=== PATIENT | female | born 1990 | race African-American/Black ===

== ENCOUNTER 2016-10-07 20:34 | Emergency (ER) | payer MEDICAID, OTHER ==
[~2016-10-07] VITALS: Ht 160 cm; Wt 79.4 kg
[~2016-10-07 20:34] MED LIST: HYDROCODON-ACE1 EA15 ORAL; KEFLEX500 MG ORAL; NITROFURANTOIN100 M2 ORAL; NKM; NORCO 5-325 TA1 EAC1 ORAL; NORCO 5-325 TA1 EACH ORAL; ONDANSETRON ODT4 MG ORAL; ONDANSETRON ODT4 MG PO; PEPCID20 MG ORAL; PREVACID30 MG ORAL; PROMETHAZINE HC25 MG RC; ZOFRAN ODT4 MG ORAL; ZOFRAN4 M3 ORAL
[2016-10-07] MEDS ORDERED: Lidocaine 2% Visc 15ml soln ORAL ONE (21:00)
[2016-10-07] MEDS ORDERED: LIDOCAINE20 MG/1 M1 MM (21:09)
[2016-10-07] MEDS ORDERED: AMOXICILLI250 MG/5 M ORAL (21:09)
[2016-10-07 21:21] VITALS: BP 130/67
--- NOTE | 2016-10-11 13:45 | Emergency Room Report ---
History of Present Illness General Chief Complaint: Sore Throat Source: Patient Present Illness HPI Patient is a 26-year-old female presented after increased sore throat. Patient gradual onset of symptoms of the past 2 days. Patient reported having increased difficulty swallowing. Patient denied having any headache or neck stiffness. Patient had been able to pass liquids. Patient denied productive cough. Patient reported having some subjective fever Allergies: Coded Allergies: [place] (Verified Allergy, Unknown, 10/07/16) Patient History Last Menstrual Period: a week ago Now: No Reviewed Nursing Documentation: PMH: Agreed, PSxH: Agreed Nursing Documentation-PMH Past Medical History: No History, Except For Hx Cardiac Problems: No Hx Cancer: No Hx Gastrointestinal Problems: Yes - Gastritis Hx Neurological Problems: No Review of Systems All Other Systems: negative except mentioned in HPI Physical Exam Vital Signs Date Time Temp Pulse Resp B/P Pulse Ox O2 Delivery O2 Flow Rate FiO2 10/07/16 20:44 98.1 88 16 121/77 99 Room Air General Appearance: well appearing, no apparent distress, alert, GCS 15 Head: normocephalic, atraumatic ENT: normal voice, uvula midline, pharyngeal erythema Neck: full range of motion, supple Respiratory: lungs clear, normal breath sounds, no respiratory distress, speaking full sentences Gastrointestinal: normal bowel sounds, non tender Musculoskeletal: normal inspection, back normal, digits/nails normal, no calf tenderness Neurologic: normal inspection, alert, oriented x3, responsive, first cook III-XII nml as tested, normal gait Psychiatric: normal inspection, mood/affect normal Skin: no rash Medical Decision Making Diagnostic Impression: Primary Impression: Pharyngitis ER Course Patient presented for sore throat. Differential diagnosis included but was not limited to meningitis, exudative tonsillitis, retropharyngeal abscess, epiglottitis, strep pharyngitis. Patient's benign exam and does not appear to require any further imaging or laboratory testing at this time. Patient given prescription for viscous lidocaine as well as for antibiotics due to presumed strep pharyngitis.The patient is advised to follow up with primary care doctor in 1-2 days. Patient is advised to return if any worsening condition or if any changes in status that are concerning. Last Vital Signs Date Time Temp Pulse Resp B/P Pulse Ox O2 Delivery O2 Flow Rate FiO2 10/07/16 21:21 78 14 130/67 99 Room Air 10/07/16 21:21 98.0 Status: improved Disposition: HOME, SELF-CARE Condition: Stable Scripts Lidocaine HCl (Lidocaine HCl Viscous) 100 Ml Solution 20 MG MM EVERY 8 HOURS, #100 MG Prov: Hipolito Whelan 10/07/16 Amoxicillin* (AMOXICILLIN*) 250 Mg/5 Ml Susp.recon 250 MG ORAL EVERY 8 HOURS, #150 ML Prov: Hipolito Whelan 10/07/16 Referrals: [facility] (PCP) Patient Instructions: Sore Throat Hipolito Whelan Oct 11, 2016 13:45
== END 2016-10-07 21:21 | disposition home or self-care (01) ==
LOC: EMR 21:08
DX: J02.9 Acute pharyngitis, unspecified (principal)
CPT/HCPCS: 99284

== ENCOUNTER 2016-10-25 08:44 | Emergency (ER) | payer OTHER ==
[~2016-10-25] VITALS: Ht 160 cm; Wt 77.1 kg
[~2016-10-25 08:44] MED LIST changes: +AMOXICILLI250 MG/5 M ORAL; +LIDOCAINE20 MG/1 M1 MM
--- NOTE | 2016-10-25 08:57 | Emergency Room Report ---
History of Present Illness General Chief Complaint: Abdominal Pain Source: Patient Present Illness HPI Patient presents with abdominal pain. Started at 4 am. She's states it's severe at this time. Constant. Some suprapubic and right lower quadrant. She doesn't think she is . She denies any dysuria. She's been vomiting along with that. She is unable to take any medication. She denies any fevers or upper respiratory symptoms. She still has her appendix. Pain 10/10, sharp and burning. Menses began recently. Denies discharge. No prior pelvic infection. Has had problems with R ovary in past. H/O gastritis in past. This feels different. Allergies: Coded Allergies: [place] (Verified Allergy, Unknown, 10/07/16) Patient History Past Medical History: see triage record Social History: Denies: smoking Social History Narrative at home Last Menstrual Period: 10/24/16 Reviewed Nursing Documentation: PMH: Agreed, PSxH: Agreed Nursing Documentation-PMH Past Medical History: No History, Except For Hx Cardiac Problems: No Hx Cancer: No Hx Gastrointestinal Problems: Yes - gastritis Hx Neurological Problems: No Review of Systems All Other Systems: negative except mentioned in HPI Physical Exam Vital Signs Date Time Temp Pulse Resp B/P Pulse Ox O2 Delivery O2 Flow Rate FiO2 10/25/16 08:49 97.3 52 26 118/52 98 Sp02 EP Interpretation: reviewed, normal General Appearance: well appearing, GCS 15, non-toxic, mild distress Head: normocephalic, atraumatic Eyes: bilateral eye PERRL, bilateral eye normal inspection ENT: moist mucus membranes Neck: supple Respiratory: lungs clear, normal breath sounds Cardiovascular #1: regular rate, rhythm Cardiovascular #2: 2+ radial (R) Gastrointestinal: normal inspection, normal bowel sounds, no mass, non- distended, no guarding, no rebound, tenderness - suprapubic Genitourinary: no CVA tenderness, adnexa normal, cervix normal, os closed, uterus normal, other - menstrual blood, no CMT Musculoskeletal: back normal, gait/station normal, normal range of motion Neurologic: alert, oriented x3, grossly normal Psychiatric: mood/affect normal Skin: normal inspection, warm/dry Medical Decision Making Diagnostic Impression: Primary Impression: Abdominal pain Qualified Codes: R10.30 - Lower abdominal pain, unspecified Additional Impressions: UTI (urinary tract infection) Qualified Codes: N30.00 - Acute cystitis without hematuria Nausea & vomiting Qualified Codes: R11.2 - Nausea with vomiting, unspecified ER Course Patient presents with abdominal pain. Differential includes appendicitis, gastroenteritis, torsion, PID, UTI, gastritis, diverticulitis amongst others. The patient has fairly significant pain at this time. Evaluation will be with labs, and urinalysis. Will consider performing pelvic ultrasound. She'll be treated with IV hydration, Zofran, Pepcid, toradol and also with morphine. Labs with normal WBC. UA with pyuria. Minimal elevation of LFTs. Bili normal. (Pain was not RUQ.) Improved with meds. Based on pelvic, not PID. Wet mount neg. Abdomen is soft and no guarding. Melissa PO. Patient stable for outpatient observation and treatment. Laboratory Tests Test 10/25/16 09:00 10/25/16 09:20 Chlamydia trachomatis RNA Pending White Blood Count 6.8 K/UL (4.8-10.8) Red Blood Count 4.50 M/UL (4.20-5.40) Hemoglobin 12.6 G/DL (12.0-16.0) Hematocrit 40.3 % (37.0-47.0) Mean Corpuscular Volume 90 FL (80-99) Mean Corpuscular Hemoglobin 28.0 PG (27.0-31.0) Mean Corpuscular Hemoglobin Concent 31.2 G/DL (32.0-36.0) L Red Cell Distribution Width 14.2 % (11.6-14.8) Platelet Count 374 K/UL (150-450) Mean Platelet Volume 6.3 FL (6.5-10.1) L Neutrophils (%) (Auto) 57.2 % (45.0-75.0) Lymphocytes (%) (Auto) 29.1 % (20.0-45.0) Monocytes (%) (Auto) 7.6 % (1.0-10.0) Eosinophils (%) (Auto) 4.3 % (0.0-3.0) H Basophils (%) (Auto) 1.8 % (0.0-2.0) Prothrombin Time 10.2 SEC (9.30-11.50) Prothrombin Time INR 1.0 (0.9-1.1) PTT 27 SEC (23-33) Urine Color Pale yellow Urine Appearance Slightly cloudy Urine pH 7 (4.5-8.0) Urine Specific [place] 1.010 (1.005-1.035) Urine Protein 2+ (NEGATIVE) H Urine Glucose (UA) Negative (NEGATIVE) Urine Ketones Negative (NEGATIVE) Urine Occult Blood 5+ (NEGATIVE) H Urine Nitrite Negative (NEGATIVE) Urine Bilirubin Negative (NEGATIVE) Urine Urobilinogen Normal MG/DL (0.0-1.0) Urine Leukocyte Esterase 1+ (NEGATIVE) H Urine RBC 60-80 /HPF (0 - 2) H Urine WBC 10-15 /HPF (0 - 2) H Urine Squamous Epithelial Cells Few /LPF (NONE/OCC) Urine Bacteria Few /HPF (NONE) Urine HCG, Qualitative Negative Sodium Level 140 mEQ/L (135-145) Potassium Level 4.3 mEQ/L (3.4-4.9) Chloride Level 100 mEQ/L (98-107) Carbon Dioxide Level 20 mEQ/L (20-30) Anion Gap 20 (5-15) H Blood Urea Nitrogen 6 mg/dL (7-23) L Creatinine 0.7 mg/dL (0.5-0.9) Estimate Glomerular Filtration Rate > 60 mL/min (>60) Glucose Level 113 mg/dL (74-106) H Calcium Level 9.0 mg/dL (8.6-10.2) Total Bilirubin < 0.2 mg/dL (0.0-1.2) Aspartate Amino Transferase (AST) 70 U/L (5-40) H Alanine Aminotransferase (ALT) 49 U/L (3-33) H Alkaline Phosphatase 71 U/L (35-104) Total Protein 7.8 g/dL (6.6-8.7) Albumin 4.1 g/dL (3.5-5.2) Globulin 3.7 g/dL Albumin/Globulin Ratio 1.1 (1.0-2.7) Lipase 16 U/L (< 60) Microbiology Date/Time Source Procedure Growth Status 10/25/16 11:50 Vaginal Wet Prep - Final Complete Last Vital Signs Date Time Temp Pulse Resp B/P Pulse Ox O2 Delivery O2 Flow Rate FiO2 10/25/16 13:50 97.3 50 26 101/51 100 Room Air Status: improved Disposition: HOME, SELF-CARE Condition: Improved Scripts Famotidine (PEPCID) 20 Mg Tablet 20 MG ORAL DAILY, #20 TAB 0 Refills Prov: Hair Renee M.D. 10/25/16 Ondansetron Odt* (ZOFRAN ODT*) 4 Mg Tab.rapdis 4 MG ORAL Q6H Y for Nausea & Vomiting, #8 TAB 0 Refills Prov: Hair Renee M.D. 10/25/16 Nitrofurantoin Monohyd/M-Cryst* (MACROBID 100 MG*) 100 Mg Capsule 100 MG ORAL EVERY 12 HOURS, #14 CAP Prov: Hair Renee M.D. 10/25/16 Tramadol Hcl* (ULTRAM*) 50 Mg Tablet 50 MG ORAL Q6H Y for For Pain, #12 TAB 0 Refills Prov: Hair Renee M.D. 10/25/16 Hair Renee M.D. Oct 25, 2016 08:57
[2016-10-25] MEDS ORDERED: Morphine Sulfate 2mg/ml Inj IVP ONE (09:00)
[2016-10-25] MEDS ORDERED: Ketorolac 30mg Inj IV ONE (09:00)
[2016-10-25] MEDS ORDERED: Famotidine 20 MG/ 2ML VIAL IVP ONE (09:00)
[2016-10-25 09:39] LABS: APPEARANCE,URINE SLIGHTLY CLOUDY; BASOPHILS % (AUTO) 1.8 % (0.0-2.0); EOSINOPHILS % (AUTO) 4.3 % (0.0-3.0); KETONES,URINE NEGATIVE (NEGATIVE); LEUKOCYTE ESTERASE ,URINE 1+ (NEGATIVE); LYMPHOCYTES % (AUTO) 29.1 % (20.0-45.0); MEAN CORPUSCULAR HGB CONC 31.2 G/DL (32.0-36.0); MEAN CORPUSCULAR VOLUME 90 FL (80-99); MEAN PLATELET VOLUME 6.3 FL (6.5-10.1); MONOCYTES % (AUTO) 7.6 % (1.0-10.0); NEUTROPHILS % (AUTO) 57.2 % (45.0-75.0); NITRITE,URINE NEGATIVE (NEGATIVE); PH,URINE 7 (4.5-8.0); PLATELET COUNT 374 K/UL (150-450); PROTEIN,URINE 2+ (NEGATIVE); RED CELL DISTRIBUTION WIDTH 14.2 % (11.6-14.8); UROBILINOGEN,URINE NORMAL MG/DL (0.0-1.0); WHITE BLOOD COUNT 6.8 K/UL (4.8-10.8)
[2016-10-25 09:40] VITALS: BP 123/70
[2016-10-25 09:47] LABS: ALANINE AMINOTRANSFERASE 49 U/L (3-33); ALBUMIN/GLOBULIN RATIO 1.1 (1.0-2.7); ANION GAP 20 (5-15); ASPARTATE AMINO TRANSFERASE 70 U/L (5-40); CARBON DIOXIDE 20 mEQ/L (20-30); CHLORIDE 100 mEQ/L (98-107); CREATININE 0.7 mg/dL (0.5-0.9); GLOMERULAR FILTRATION RATE > 60 mL/min (>60); HEMOLYSIS 62; LIPASE 16 U/L (< 60); POTASSIUM 4.3 mEQ/L (3.4-4.9); SODIUM 140 mEQ/L (135-145); TOTAL PROTEIN 7.8 g/dL (6.6-8.7)
[2016-10-25 09:49] LABS: BACTERIA,URINE FEW /HPF; RBC,URINE 60-80 /HPF (0 - 2); SQUAMOUS EPITHELIAL CELL,UR FEW /LPF (NONE/OCC)
[2016-10-25 09:50] LABS: PROTHROMBIN TIME 10.2 SEC (9.30-11.50)
[2016-10-25] MEDS ORDERED: Morphine Sulfate 4mg/ml Inj IVP ONE ×2 (10:00→12:00)
[2016-10-25] MEDS ORDERED: cefTRIAXone 1 GM in NS 55 ML IVPB ONE (10:00)
[2016-10-25] MEDS ORDERED: Metoclopramide 10mg/2ml Inj IVP ONE (10:00)
[2016-10-25] MEDS ORDERED: DiphenhydrAMINE 50mg/ml Inj IVP ONE (10:00)
[2016-10-25 11:34] VITALS: BP 123/70
[2016-10-25] MEDS ORDERED: PEPCID20 MG ORAL (13:20)
[2016-10-25] MEDS ORDERED: ZOFRAN ODT4 MG ORAL (13:20)
[2016-10-25] MEDS ORDERED: NITROFURANTOIN100 M2 ORAL (13:20)
[2016-10-25] MEDS ORDERED: TRAMADOL HCL50 MG ORAL (13:20)
[2016-10-25 13:50] VITALS: BP 101/51
== END 2016-10-25 15:15 | disposition home or self-care (01) ==
LOC: EMR 08:59
DX: R10.30 Lower abdominal pain, unspecified (principal); N30.00 Acute cystitis without hematuria; R11.2 Nausea with vomiting, unspecified; Z91.018 Allergy to other foods
CPT/HCPCS: 36415; 80053; 81003; 81025; 83690; 85025; 85610; 85730; 87081; 87086; 87205; 87210; 87491; 96374; 96375; 99284; J0696; J1200; J1885; J2270; J2405; J2765; S0028

== ENCOUNTER 2016-10-29 09:21 | Emergency (ER) | payer OTHER ==
[~2016-10-29] VITALS: Ht 167.6 cm; Wt 77.1 kg
[~2016-10-29 09:21] MED LIST changes: +TRAMADOL HCL50 MG ORAL
[2016-10-29 09:40] VITALS: BP 154/86
[2016-10-29] MEDS ORDERED: Famotidine 20 MG/ 2ML VIAL IVP ONE (10:00)
[2016-10-29] MEDS ORDERED: Morphine Sulfate 4mg/ml Inj IVP ONE ×2 (10:00→11:15)
[2016-10-29 10:28] LABS: BASOPHILS % (AUTO) 1.1 % (0.0-2.0); EOSINOPHILS % (AUTO) 2.8 % (0.0-3.0); LYMPHOCYTES % (AUTO) 36.4 % (20.0-45.0); MEAN CORPUSCULAR HGB CONC 32.2 G/DL (32.0-36.0); MEAN CORPUSCULAR VOLUME 87 FL (80-99); MEAN PLATELET VOLUME 6.2 FL (6.5-10.1); MONOCYTES % (AUTO) 16.1 % (1.0-10.0); NEUTROPHILS % (AUTO) 43.6 % (45.0-75.0); PLATELET COUNT 356 K/UL (150-450); RED BLOOD COUNT 4.23 M/UL (4.20-5.40); RED CELL DISTRIBUTION WIDTH 13.3 % (11.6-14.8); WHITE BLOOD COUNT 4.8 K/UL (4.8-10.8)
[2016-10-29 10:37] LABS: ALANINE AMINOTRANSFERASE 87 U/L (3-33); ALBUMIN/GLOBULIN RATIO 1.2 (1.0-2.7); ANION GAP 19 (5-15); ASPARTATE AMINO TRANSFERASE 167 U/L (5-40); CALCIUM 9.4 mg/dL (8.6-10.2); CARBON DIOXIDE 21 mEQ/L (20-30); CHLORIDE 100 mEQ/L (98-107); CREATININE 0.8 mg/dL (0.5-0.9); GLOMERULAR FILTRATION RATE > 60 mL/min (>60); HEMOLYSIS 0; LIPASE 15 U/L (< 60); POTASSIUM 3.2 mEQ/L (3.4-4.9); SODIUM 140 mEQ/L (135-145)
[2016-10-29 11:00] VITALS: BP 130/96
[2016-10-29] MEDS ORDERED: DiphenhydrAMINE 50mg/ml Inj IVP ONE (11:15)
[2016-10-29] MEDS ORDERED: Metoclopramide 10mg/2ml Inj IVP ONE (11:15)
[2016-10-29 13:00] VITALS: BP 141/86
[2016-10-29 13:03] LABS: APPEARANCE,URINE SLIGHTLY CLOUDY; KETONES,URINE 3+ (NEGATIVE); LEUKOCYTE ESTERASE ,URINE 1+ (NEGATIVE); NITRITE,URINE NEGATIVE (NEGATIVE); PH,URINE 8 (4.5-8.0); PROTEIN,URINE 1+ (NEGATIVE); UROBILINOGEN,URINE NORMAL MG/DL (0.0-1.0)
[2016-10-29 13:17] LABS: BACTERIA,URINE FEW /HPF; RBC,URINE 30-40 /HPF (0 - 2); SQUAMOUS EPITHELIAL CELL,UR FEW /LPF (NONE/OCC)
--- NOTE | 2016-10-29 14:01 | Diagnostic Imaging Report ---
Indication: Abdominal pain Comparison: None Single view of the abdomen obtained Findings: Bowel gas pattern is nonspecific. No mass, ectopic calcifications, or abnormal gas collections are identified. The bones are unremarkable. Impression: No acute findings
--- NOTE | 2016-10-29 14:39 | Emergency Room Report ---
History of Present Illness General Chief Complaint: Abdominal Pain Source: Patient Present Illness HPI The patient represents with epigastric pain and vomiting. She was evaluated on October 25 with similar complaints. Labs were unremarkable and she was able to tolerate by mouth after IV hydration and several different antiemetics and analgesia. She was doing well until last night about 1 in the morning. She's been vomiting persistently. I prescribed Zofran which did not help. Also had prescribed pain medication and this also she was unable to tolerate. She doesn't think she is , there is no blood in the vomitus. No melena. She is passing flatus at this time. She feels some dizziness with standing. Denies any fevers or chills or extremity pain. Pain is 9/10, constant, burning, more epigastric, states not radiating. CT 11/2015 for similar complaints: Impression: Normal appendix. Underdistention of the colon noted. Wall thickening and colitis not excluded. Please correlate clinically. Free fluid within the pelvis. Uterine fibroid suspected. Allergies: Coded Allergies: [place] (Verified Allergy, Unknown, 10/07/16) Patient History Past Medical History: see triage record Social History: Denies: alcohol use Social History Narrative at home Reviewed Nursing Documentation: PMH: Agreed, PSxH: Agreed Nursing Documentation-PMH Hx Cardiac Problems: No Hx Cancer: No Hx Gastrointestinal Problems: Yes - gastritis Hx Neurological Problems: No Review of Systems All Other Systems: negative except mentioned in HPI Physical Exam Vital Signs Date Time Temp Pulse Resp B/P Pulse Ox O2 Delivery O2 Flow Rate FiO2 10/29/16 09:39 98.2 53 20 149/90 99 Room Air Sp02 EP Interpretation: reviewed, normal General Appearance: GCS 15, non-toxic, mild distress, other - vomiting Head: normocephalic Eyes: bilateral eye PERRL, bilateral eye anticteric, bilateral eye normal inspection ENT: moist mucus membranes Neck: supple Respiratory: lungs clear, normal breath sounds Cardiovascular #1: regular rate, rhythm Cardiovascular #2: 2+ radial (R) Gastrointestinal: soft, guarding - epigastric, tenderness, overweight Musculoskeletal: back normal, gait/station normal, normal range of motion Neurologic: alert, oriented x3, grossly normal Psychiatric: depressed affect Skin: normal inspection, warm/dry Medical Decision Making Diagnostic Impression: Primary Impression: Intractable abdominal pain Additional Impression: Nausea & vomiting Qualified Codes: G43.A1 - Cyclical vomiting, intractable ER Course Patient presents with epigastric pain and vomiting. She was seen with similar complaints on the and improved was able tolerate by mouth liquids. In the past she's had to be hospitalized for this problem. We need to do repeat evaluation this time with x-rays. The patient will be evaluated with abdominal film, labs and urinalysis. The patient will receive IV hydration, Zofran and analgesia. The patient still is vomiting and Reglan and Benadryl were given and analgesia was repeated. Labs and x-ray unremarkable. Patient still vomiting and with pain. Admit med. Discussed with Dr. Stahl who accepts patient. Laboratory Tests Test 10/29/16 10:02 10/29/16 12:38 White Blood Count 4.8 K/UL (4.8-10.8) Red Blood Count 4.23 M/UL (4.20-5.40) Hemoglobin 11.8 G/DL (12.0-16.0) L Hematocrit 36.7 % (37.0-47.0) L Mean Corpuscular Volume 87 FL (80-99) Mean Corpuscular Hemoglobin 28.0 PG (27.0-31.0) Mean Corpuscular Hemoglobin Concent 32.2 G/DL (32.0-36.0) Red Cell Distribution Width 13.3 % (11.6-14.8) Platelet Count 356 K/UL (150-450) Mean Platelet Volume 6.2 FL (6.5-10.1) L Neutrophils (%) (Auto) 43.6 % (45.0-75.0) L Lymphocytes (%) (Auto) 36.4 % (20.0-45.0) Monocytes (%) (Auto) 16.1 % (1.0-10.0) H Eosinophils (%) (Auto) 2.8 % (0.0-3.0) Basophils (%) (Auto) 1.1 % (0.0-2.0) Sodium Level 140 mEQ/L (135-145) Potassium Level 3.2 mEQ/L (3.4-4.9) L Chloride Level 100 mEQ/L (98-107) Carbon Dioxide Level 21 mEQ/L (20-30) Anion Gap 19 (5-15) H Blood Urea Nitrogen 5 mg/dL (7-23) L Creatinine 0.8 mg/dL (0.5-0.9) Estimate Glomerular Filtration Rate > 60 mL/min (>60) Glucose Level 124 mg/dL (74-106) H Calcium Level 9.4 mg/dL (8.6-10.2) Total Bilirubin 0.2 mg/dL (0.0-1.2) Aspartate Amino Transferase (AST) 167 U/L (5-40) H Alanine Aminotransferase (ALT) 87 U/L (3-33) H Alkaline Phosphatase 91 U/L (35-104) Total Protein 8.0 g/dL (6.6-8.7) Albumin 4.5 g/dL (3.5-5.2) Globulin 3.5 g/dL Albumin/Globulin Ratio 1.2 (1.0-2.7) Lipase 15 U/L (< 60) Urine Color Pale yellow Urine Appearance Slightly cloudy Urine pH 8 (4.5-8.0) Urine Specific [place] 1.015 (1.005-1.035) Urine Protein 1+ (NEGATIVE) H Urine Glucose (UA) Negative (NEGATIVE) Urine Ketones 3+ (NEGATIVE) H Urine Occult Blood 5+ (NEGATIVE) H Urine Nitrite Negative (NEGATIVE) Urine Bilirubin Negative (NEGATIVE) Urine Urobilinogen Normal MG/DL (0.0-1.0) Urine Leukocyte Esterase 1+ (NEGATIVE) H Urine RBC 30-40 /HPF (0 - 2) H Urine WBC 2-4 /HPF (0 - 2) Urine Squamous Epithelial Cells Few /LPF (NONE/OCC) Urine Bacteria Few /HPF (NONE) Urine HCG, Qualitative Negative Urine Opiates Screen Positive (NEGATIVE) H Urine Barbiturates Screen Negative (NEGATIVE) Phencyclidine (PCP) Screen Negative (NEGATIVE) Urine Amphetamines Screen Negative (NEGATIVE) Urine Benzodiazepines Screen Negative (NEGATIVE) Urine Cocaine Screen Negative (NEGATIVE) Urine Marijuana (THC) Screen Positive (NEGATIVE) H Other X-Ray Diagnostic Results Other X-Ray Diagnostic Results : X-Ray Ordered: abd EP Interpretation: Yes Findings: other - no SBO, paucity of gas, no masses Number of Views: 1 Last Vital Signs Date Time Temp Pulse Resp B/P Pulse Ox O2 Delivery O2 Flow Rate FiO2 10/29/16 18:24 61 24 114/79 100 Room Air 5/2/17 15:30 98.2 Status: improved Disposition: XFER SHT-TRM HOSP Condition: Serious - but stable for transfer Referrals: [facility] ([facility]P) Hair Renee M.D. October 29, 2016 14:39
[2016-10-29 15:30] VITALS: BP 132/79
[2016-10-29] MEDS ORDERED: HYDROmorphone 1mg/ml Carpuject IVP ONE (16:45)
[2016-10-29 18:24] VITALS: BP 114/79
== END 2016-10-29 18:30 | disposition short-term general hospital (02) ==
LOC: EDBD → EMR 10:19
DX: R11.10 Vomiting, unspecified (principal); Z91.018 Allergy to other foods; K29.70 Gastritis, unspecified, without bleeding; F32.9 Major depressive disorder, single episode, unspecified
CPT/HCPCS: 36415; 74000; 80053; 80300; 81003; 81025; 83690; 85025; 96360; 96374; 96375; 99285; J1170; J1200; J2270; J2405; J2765; S0028

== ENCOUNTER 2016-10-31 09:42 | Emergency (ER) | payer OTHER ==
[~2016-10-31] VITALS: Ht 160 cm; Wt 77.1 kg
[2016-10-31] MEDS ORDERED: Metoclopramide 10mg/2ml Inj IM ONE (10:00)
--- NOTE | 2016-10-31 10:24 | Emergency Room Report ---
History of Present Illness General Chief Complaint: Abdominal Pain Source: Patient Present Illness HPI 26YOF presents with abd pain and nausea/vomiting since DC from outside hospital. Denies urinary complaints, fever/chills, diarrhea, sick contacts, previous abd/pelvic surgery. States is taking [place] at home for pain. Continues to smoke marijuana. Patient was in the ED 2 days ago for similar complaint. Because of intractable vomiting, was transferred to Dr Stahl at outside hospital. Review of EMR shows multiple visits for abd pain and intractable vomiting. Utox has been positive for marijuana abuse multiple times Allergies: Coded Allergies: [place] (Verified Allergy, Unknown, 10/07/16) Patient History Past Medical History: none Past Surgical History: none Pertinent Family History: none Social History: Reports: drug use, smoking Last Menstrual Period: 10/25/16 Now: No Immunizations: UTD Reviewed Nursing Documentation: PMH: Agreed, PSxH: Agreed Nursing Documentation-PMH Past Medical History: No History, Except For Hx Cardiac Problems: No Hx Cancer: No Hx Gastrointestinal Problems: Yes - gastritis Hx Neurological Problems: No Review of Systems All Other Systems: negative except mentioned in HPI Physical Exam Vital Signs Date Time Temp Pulse Resp B/P Pulse Ox O2 Delivery O2 Flow Rate FiO2 10/31/16 09:57 98.1 74 20 132/76 99 Room Air Sp02 EP Interpretation: reviewed, normal General Appearance: normal inspection, well appearing, no apparent distress, alert, GCS 15, non-toxic, other - Vomiting non-bilious material in [employer] chairs Head: normocephalic, atraumatic Eyes: bilateral eye EOMI, bilateral eye PERRL ENT: normal ENT inspection, hearing grossly normal, normal voice Neck: normal inspection, full range of motion, supple, no bony tend Respiratory: normal inspection, lungs clear, normal breath sounds, no respiratory distress, no retraction, no wheezing Cardiovascular #1: regular rate, rhythm, no edema Gastrointestinal: normal inspection, normal bowel sounds, non tender, soft, no guarding, no hernia Genitourinary: no CVA tenderness Musculoskeletal: normal inspection, back normal, normal range of motion, Иван' s Sign negative Neurologic: normal inspection, alert, oriented x3, responsive, facs teacher III-XII nml as tested, motor strength/tone normal, speech normal Psychiatric: normal inspection, judgement/insight normal, mood/affect normal Skin: normal inspection, normal color, no rash Lymphatic: normal inspection Medical Decision Making Diagnostic Impression: Primary Impression: Nausea & vomiting Qualified Codes: G43.A0 - Cyclical vomiting, not intractable Additional Impressions: Intractable cyclical vomiting with nausea Marijuana abuse, continuous ER Course 26YOF with repeat visits for intractable vomiting, likely d/t continuous marijuana abuse VSS. Afebrile. No focal abd ttp on exam Labs from 2 days ago were unremarkable for acute bacterial or surgical process Previous CTAP was also unremarkable Patient refused to give urine Was writhing on ground in OB room but when I came to examine her, got up, sat on bed and had normal interactive conversation Endorses continuous marijuana abuse. I encouraged her to stop as its possibly contributing to intractable vomiting. States she has [place] at home for pain "but please give me some here." I gave IM reglan and additional IM zofran for intractable vomiting but when refused to give narcotics, patient cursed me out and called me an "asshole" which was witnessed by KAREN Hooker Last Vital Signs Date Time Temp Pulse Resp B/P Pulse Ox O2 Delivery O2 Flow Rate FiO2 10/31/16 09:57 98.1 74 20 132/76 99 Room Air Status: improved Disposition: HOME, SELF-CARE JOSE CARLOS RIVERA M.D. October 31, 2016 10:24
[2016-10-31 11:30] VITALS: BP 127/80
== END 2016-10-31 11:32 | disposition home or self-care (01) ==
LOC: EMR 11:15 → EDBD 11:15 → EMR 11:32
DX: G43.A0 Cyclical vomiting, in migraine, not intractable (principal); F12.10 Cannabis abuse, uncomplicated; Z87.19 Personal history of other diseases of the digestive system
CPT/HCPCS: 96372; 99283; J2405; J2765

== ENCOUNTER 2017-07-08 12:53 | Emergency (ER) | payer OTHER ==
[~2017-07-08] VITALS: Ht 162.6 cm; Wt 72.6 kg
[2017-07-08] MEDS ORDERED: NKM (13:12)
[2017-07-08 14:30] LABS: BASOPHILS % (AUTO) 1.1 % (0.0-2.0); EOSINOPHILS % (AUTO) 1.6 % (0.0-3.0); HEMATOCRIT 40.5 % (37.0-47.0); LYMPHOCYTES % (AUTO) 18.9 % (20.0-45.0); MEAN CORPUSCULAR VOLUME 88 FL (80-99); MONOCYTES % (AUTO) 6.9 % (1.0-10.0); NEUTROPHILS % (AUTO) 71.6 % (45.0-75.0); PLATELET COUNT 374 K/UL (150-450); RED BLOOD COUNT 4.61 M/UL (4.20-5.40); RED CELL DISTRIBUTION WIDTH 12.6 % (11.6-14.8); WHITE BLOOD COUNT 9.8 K/UL (4.8-10.8)
[2017-07-08 14:32] LABS: APPEARANCE,URINE CLEAR; BILIRUBIN, URINE NEGATIVE (NEGATIVE); COLOR,URINE PALE YELLOW; GLUCOSE, URINE (UA) NEGATIVE (NEGATIVE); KETONES,URINE 2+ (NEGATIVE); LEUKOCYTE ESTERASE ,URINE 2+ (NEGATIVE); NITRITE,URINE NEGATIVE (NEGATIVE); PH,URINE 7 (4.5-8.0); PROTEIN,URINE NEGATIVE (NEGATIVE); UROBILINOGEN,URINE NORMAL MG/DL (0.0-1.0)
[2017-07-08 15:27] LABS: ANION GAP 13 mmol/L (5-15); BLOOD UREA NITROGEN 3 mg/dL (7-18); CALCIUM 9.5 MG/DL (8.5-10.1); CARBON DIOXIDE 22 MMOL/L (21-32); CHLORIDE 101 MMOL/L (98-107); CREATININE 0.7 MG/DL (0.55-1.30); SODIUM 136 MMOL/L (136-145)
[2017-07-08 15:28] LABS: ALANINE AMINOTRANSFERASE 55 U/L (12-78); ALBUMIN 4.1 G/DL (3.4-5.0); ALBUMIN/GLOBULIN RATIO 0.9 (1.0-2.7); ALKALINE PHOSPHATASE 62 U/L (46-116); ASPARTATE AMINO TRANSFERASE 32 U/L (15-37); BILIRUBIN,TOTAL 0.3 MG/DL (0.2-1.0)
[2017-07-08 16:15] VITALS: BP 127/88
[2017-07-08] MEDS ORDERED: PRENATAL VITAM1 EACH PO (16:33)
--- NOTE | 2017-07-08 22:42 | Emergency Room Report ---
History of Present Illness General Chief Complaint: Abdominal Pain Source: Patient Present Illness [facility] The patient is a 27-year-old female at approximately 4 weeks gestation by dates presenting for cough, fatigue, subjective fevers. Last normal menstrual period was 06/05/18. She took a test at home yesterday which was +. She denies any known sick contacts recent travel. Pain is an 8 of 10 dull ache primarily to the mid chest. Does not radiate. She denies other symptoms including vomiting, abd pain, shortness of breath, vaginal DC, vaginal bleeding Allergies: Coded Allergies: [place] (Verified Allergy, Unknown, 10/07/16) Patient History Past Medical History: see triage record Pertinent Family History: none Now: Yes : 3 Para: 1 Reviewed Nursing Documentation: PMH: Agreed, PSxH: Agreed Nursing Documentation-PMH Hx Cardiac Problems: No Hx Cancer: No Hx Gastrointestinal Problems: Yes - Gastritis Hx Neurological Problems: No Review of Systems All Other Systems: negative except mentioned in HPI Physical Exam Vital Signs Date Time Temp Pulse Resp B/P (MAP) Pulse Ox O2 Delivery O2 Flow Rate FiO2 07/08/17 13:08 99.0 84 20 127/88 99 Room Air Sp02 EP Interpretation: reviewed, normal General Appearance: no apparent distress, alert, GCS 15, non-toxic Head: normocephalic, atraumatic Eyes: bilateral eye normal inspection, bilateral eye PERRL ENT: hearing grossly normal, normal pharynx, no angioedema, normal voice, uvula midline Neck: full range of motion, supple/symm/no masses Respiratory: chest non-tender, lungs clear, normal breath sounds, speaking full sentences Cardiovascular #1: regular rate, rhythm, no edema Gastrointestinal: tenderness - suprapubic Genitourinary: normal inspection, no CVA tenderness Musculoskeletal: back normal, gait/station normal, normal range of motion, non- tender Neurologic: alert, oriented x3, responsive, motor strength/tone normal, sensory intact, speech normal Psychiatric: judgement/insight normal, memory normal, mood/affect normal, no suicidal/homicidal ideation Skin: normal color, no rash, warm/dry, well hydrated Medical Decision Making PA Attestation Dr. Mcbride is my supervising physician. Patient management was discussed with my supervising physician Diagnostic Impression: Primary Impression: Qualified Codes: Z3A.01 - Less than 8 weeks gestation of ER Course The patient is a 27-year-old female at approximately 4 weeks gestation by dates presenting for cough, fatigue, subjective fevers Differential diagnoses considered include but not limited to Early , threatened , ectopic , pharyngitis, influenza, bronchitis, among others PE: No apparent distress. No TTP over maxillary or frontal sinuses. Lungs CTA bilat. No wheezing. No accessory muscle use. Heart: RRR, no abnormal heart sounds Ears: external auditory canal clear. Non erythematous. Bilat TM intact. Cone of light present bilat. No bulging of TM. No serous fluid seen. No tonsillar exudate. Uvula midline.Oropharynx non erythematous Abd soft and non tender CBC unremarkable. No leukocytosis CMP unremarkable Beta-hCG appropriate for gestational age Urinalysis unremarkable Negative influenza The patient will be discharged home with prescription for vitamins and will follow up with OB. ER precautions are given Laboratory Tests Test 07/08/17 14:05 White Blood Count 9.8 K/UL (4.8-10.8) Red Blood Count 4.61 M/UL (4.20-5.40) Hemoglobin 13.0 G/DL (12.0-16.0) Hematocrit 40.5 % (37.0-47.0) Mean Corpuscular Volume 88 FL (80-99) Mean Corpuscular Hemoglobin 28.1 PG (27.0-31.0) Mean Corpuscular Hemoglobin Concent 31.9 G/DL (32.0-36.0) L Red Cell Distribution Width 12.6 % (11.6-14.8) Platelet Count 374 K/UL (150-450) Mean Platelet Volume 5.7 FL (6.5-10.1) L Neutrophils (%) (Auto) 71.6 % (45.0-75.0) Lymphocytes (%) (Auto) 18.9 % (20.0-45.0) L Monocytes (%) (Auto) 6.9 % (1.0-10.0) Eosinophils (%) (Auto) 1.6 % (0.0-3.0) Basophils (%) (Auto) 1.1 % (0.0-2.0) Urine Color Pale yellow Urine Appearance Clear Urine pH 7 (4.5-8.0) Urine Specific [place] 1.005 (1.005-1.035) Urine Protein Negative (NEGATIVE) Urine Glucose (UA) Negative (NEGATIVE) Urine Ketones 2+ (NEGATIVE) H Urine Occult Blood Negative (NEGATIVE) Urine Nitrite Negative (NEGATIVE) Urine Bilirubin Negative (NEGATIVE) Urine Urobilinogen Normal MG/DL (0.0-1.0) Urine Leukocyte Esterase 2+ (NEGATIVE) H Urine RBC 0-2 /HPF (0 - 2) Urine WBC 2-4 /HPF (0 - 2) Urine Squamous Epithelial Cells Few /LPF (NONE/OCC) Urine Bacteria Occasional /HPF (NONE) Urine HCG, Qualitative Positive Sodium Level 136 MMOL/L (136-145) Potassium Level 4.0 MMOL/L (3.5-5.1) Chloride Level 101 MMOL/L (98-107) Carbon Dioxide Level 22 MMOL/L (21-32) Anion Gap 13 mmol/L (5-15) Blood Urea Nitrogen 3 mg/dL (7-18) L Creatinine 0.7 MG/DL (0.55-1.30) Estimate Glomerular Filtration Rate > 60 mL/min (>60) Glucose Level 86 MG/DL (74-106) Calcium Level 9.5 MG/DL (8.5-10.1) Total Bilirubin 0.3 MG/DL (0.2-1.0) Aspartate Amino Transferase (AST) 32 U/L (15-37) Alanine Aminotransferase (ALT) 55 U/L (12-78) Alkaline Phosphatase 62 U/L (46-116) Total Protein 8.6 G/DL (6.4-8.2) H Albumin 4.1 G/DL (3.4-5.0) Globulin 4.5 g/dL Albumin/Globulin Ratio 0.9 (1.0-2.7) L Human Chorionic Gonadotropin, Quant 27326 mIU/mL (1-6) H Microbiology Date/Time Source Procedure Growth Status 07/08/17 16:12 Nasal Nares Influenza Types A,B Antigen (JOSE) - Final Complete Lab Results Impression CBC unremarkable. No leukocytosis CMP unremarkable Beta-hCG appropriate for gestational age Urinalysis unremarkable Negative influenza Last Vital Signs Date Time Temp Pulse Resp B/P (MAP) Pulse Ox O2 Delivery O2 Flow Rate FiO2 07/08/17 16:15 99.0 75 18 126/75 100 Room Air Status: improved Disposition: HOME, SELF-CARE Condition: Improved Scripts Vits W-Ca,Fe,Fa(<1MG) ( VITAMINS) 1 Each Tablet 1 EACH PO DAILY, #30 TAB Prov: TAYLOR BORGES 07/08/17 Patient Instructions: Abdominal Pain During Additional Instructions: I discussed my findings with the patient. All questions and concerns have been answered. Treatment and medication compliance have been addressed. Please follow up with [facility] as soon as possible. Return to the emergency department if you notice any symptoms including vaginal bleeding, other vaginal discharge, abdominal pain, fever TAYLOR BORGES Jul 08, 2017 22:42
== END 2017-07-08 16:50 | disposition home or self-care (01) ==
LOC: EDBD 13:40 → EMR 13:40
DX: O26.891 Other specified pregnancy related conditions, first trimester (principal); R10.9 Unspecified abdominal pain; Z3A.01 Less than 8 weeks gestation of pregnancy; Z91.018 Allergy to other foods
CPT/HCPCS: 36415; 80053; 81003; 81025; 84702; 85025; 86710; 96360; 99284

== ENCOUNTER 2017-09-24 19:11 | Emergency (ER) | payer MEDICAID, OTHER ==
[~2017-09-24] VITALS: Ht 162.6 cm; Wt 76.2 kg
[~2017-09-24 19:11] MED LIST changes: +PRENATAL VITAM1 EACH PO
[2017-09-24] MEDS ORDERED: Sodium Chloride 500ML 500 ML IV ONE (19:53)
[2017-09-24 20:00] VITALS: BP 110/67
[2017-09-24 20:25] LABS: APPEARANCE,URINE CLEAR; BILIRUBIN, URINE NEGATIVE (NEGATIVE); COLOR,URINE PALE YELLOW; GLUCOSE, URINE (UA) NEGATIVE (NEGATIVE); KETONES,URINE 1+ (NEGATIVE); LEUKOCYTE ESTERASE ,URINE NEGATIVE (NEGATIVE); NITRITE,URINE NEGATIVE (NEGATIVE); PH,URINE 6.5 (4.5-8.0); PROTEIN,URINE NEGATIVE (NEGATIVE); UROBILINOGEN,URINE NORMAL MG/DL (0.0-1.0)
[2017-09-24 20:30] LABS: BASOPHILS % (AUTO) 1.6 % (0.0-2.0); EOSINOPHILS % (AUTO) 3.6 % (0.0-3.0); HEMATOCRIT 33.5 % (37.0-47.0); HEMOGLOBIN 11.3 G/DL (12.0-16.0); LYMPHOCYTES % (AUTO) 42.1 % (20.0-45.0); MEAN CORPUSCULAR VOLUME 84 FL (80-99); MONOCYTES % (AUTO) 8.2 % (1.0-10.0); NEUTROPHILS % (AUTO) 44.4 % (45.0-75.0); PLATELET COUNT 321 K/UL (150-450); RED BLOOD COUNT 3.97 M/UL (4.20-5.40); RED CELL DISTRIBUTION WIDTH 11.8 % (11.6-14.8)
[2017-09-24 20:52] LABS: ANION GAP 12 mmol/L (5-15); BLOOD UREA NITROGEN 6 mg/dL (7-18); CALCIUM 8.8 MG/DL (8.5-10.1); CARBON DIOXIDE 22 MMOL/L (21-32); CHLORIDE 101 MMOL/L (98-107); CREATININE 0.5 MG/DL (0.55-1.30); POTASSIUM 3.6 MMOL/L (3.5-5.1); SODIUM 135 MMOL/L (136-145)
[2017-09-24 20:56] LABS: ALANINE AMINOTRANSFERASE 28 U/L (12-78); ALBUMIN 3.3 G/DL (3.4-5.0); ALBUMIN/GLOBULIN RATIO 0.8 (1.0-2.7); ALKALINE PHOSPHATASE 47 U/L (46-116); ASPARTATE AMINO TRANSFERASE 21 U/L (15-37); BILIRUBIN,TOTAL 0.2 MG/DL (0.2-1.0)
[2017-09-24 21:15] VITALS: BP 118/70
[2017-09-24] MEDS ORDERED: TYLENOL EXTRA500 MG ORAL (21:32)
--- NOTE | 2017-09-24 22:01 | Emergency Room Report ---
History of Present Illness General Chief Complaint: Abdominal Pain Source: Patient Present Illness HPI 27-year-old female presents to ED with abdominal pain. Lower, sharp, 6 out of 10, nonradiating. Patient states she is approximately 15 weeks . States she has had similar pain in the past and she was told she had an ovarian cyst. Denies any vaginal bleeding or discharge. Denies nausea or vomiting. No other aggravating relieving factors. Denies any other associated symptoms Allergies: Coded Allergies: [place] (Verified Allergy, Unknown, 10/07/16) Patient History Past Medical History: GERD Past Surgical History: none Pertinent Family History: none Social History: Denies: smoking, alcohol use, drug use Last Menstrual Period: 15 weeks Now: Yes : 3 Para: 1 Immunizations: UTD Reviewed Nursing Documentation: PMH: Agreed; PSxH: Agreed Nursing Documentation-PMH Hx Cardiac Problems: No Hx Cancer: No Hx Gastrointestinal Problems: Yes - Gastritis Hx Neurological Problems: No Review of Systems All Other Systems: negative except mentioned in HPI Physical Exam Vital Signs Date Time Temp Pulse Resp B/P (MAP) Pulse Ox O2 Delivery O2 Flow Rate FiO2 09/24/17 19:30 98.6 73 18 110/67 98 Room Air 98.6 Sp02 EP Interpretation: reviewed, normal General Appearance: no apparent distress, alert, GCS 15, non-toxic Head: normocephalic, atraumatic Eyes: bilateral eye normal inspection, bilateral eye PERRL ENT: hearing grossly normal, normal pharynx, no angioedema, normal voice Neck: full range of motion, supple/symm/no masses Respiratory: chest non-tender, lungs clear, normal breath sounds, speaking full sentences Cardiovascular #1: regular rate, rhythm, no edema Cardiovascular #2: 2+ carotid (R), 2+ carotid (L), 2+ radial (R), 2+ radial (L) , 2+ dorsalis pedis (R), 2+ dorsalis pedis (L) Gastrointestinal: normal bowel sounds, non tender, soft, non-distended, no guarding, no rebound Rectal: deferred Genitourinary: normal inspection, no CVA tenderness Musculoskeletal: back normal, gait/station normal, normal range of motion, non- tender Neurologic: alert, oriented x3, responsive, motor strength/tone normal, sensory intact, speech normal Psychiatric: judgement/insight normal, memory normal, mood/affect normal, no suicidal/homicidal ideation Reflexes: 3+ bicep (R), 3+ bicep (L), 3+ tricep (R), 3+ tricep (L), 3+ knee (R) , 3+ knee (L) Skin: normal color, no rash, warm/dry, well hydrated Lymphatic: no adenopathy Medical Decision Making Diagnostic Impression: Primary Impression: Threatened Additional Impression: Qualified Codes: Z3A.15 - 15 weeks gestation of ER Course Hospital Course 27-year-old F presents to ED complaining of lower abd pain. approximately 15 weeks Differential diagnoses include: gastrits, gastroenterits, ectopic , ovarian torsion/cyst, UTI Clinical course Patient placed on stretcher in ED. After initial history and physical I ordered labs, IV fluids, tylenol and pelvic ultrasound. Labs-no leukocytosis, electrolytes okay, UA unremarkable Pelvic ultrasound- IUP noted, +FHR. Clinically, findings consistent with threatened . Discussed findings with patient. Recommend close follow-up with LABOR SPECIALIST with serial ultrasound Diagnosis - threatend , Stable and discharged to home. Followup with PMD/LABOR SPECIALIST. Return to ED if symptoms recur or worsen Labs Test 09/24/17 20:15 White Blood Count 6.0 K/UL (4.8-10.8) Red Blood Count 3.97 M/UL (4.20-5.40) Hemoglobin 11.3 G/DL (12.0-16.0) Hematocrit 33.5 % (37.0-47.0) Mean Corpuscular Volume 84 FL (80-99) Mean Corpuscular Hemoglobin 28.4 PG (27.0-31.0) Mean Corpuscular Hemoglobin Concent 33.7 G/DL (32.0-36.0) Red Cell Distribution Width 11.8 % (11.6-14.8) Platelet Count 321 K/UL (150-450) Mean Platelet Volume 6.2 FL (6.5-10.1) Neutrophils (%) (Auto) 44.4 % (45.0-75.0) Lymphocytes (%) (Auto) 42.1 % (20.0-45.0) Monocytes (%) (Auto) 8.2 % (1.0-10.0) Eosinophils (%) (Auto) 3.6 % (0.0-3.0) Basophils (%) (Auto) 1.6 % (0.0-2.0) Urine Color Pale yellow Urine Appearance Clear Urine pH 6.5 (4.5-8.0) Urine Specific [place] 1.015 (1.005-1.035) Urine Protein Negative (NEGATIVE) Urine Glucose (UA) Negative (NEGATIVE) Urine Ketones 1+ (NEGATIVE) Urine Occult Blood Negative (NEGATIVE) Urine Nitrite Negative (NEGATIVE) Urine Bilirubin Negative (NEGATIVE) Urine Urobilinogen Normal MG/DL (0.0-1.0) Urine Leukocyte Esterase Negative (NEGATIVE) Urine HCG, Qualitative Positive (NEGATIVE) Sodium Level 135 MMOL/L (136-145) Potassium Level 3.6 MMOL/L (3.5-5.1) Chloride Level 101 MMOL/L (98-107) Carbon Dioxide Level 22 MMOL/L (21-32) Anion Gap 12 mmol/L (5-15) Blood Urea Nitrogen 6 mg/dL (7-18) Creatinine 0.5 MG/DL (0.55-1.30) Estimat Glomerular Filtration Rate > 60 mL/min (>60) Glucose Level 82 MG/DL (74-106) Calcium Level 8.8 MG/DL (8.5-10.1) Total Bilirubin 0.2 MG/DL (0.2-1.0) Aspartate Amino Transf (AST/SGOT) 21 U/L (15-37) Alanine Aminotransferase (ALT/SGPT) 28 U/L (12-78) Alkaline Phosphatase 47 U/L (46-116) Total Protein 7.6 G/DL (6.4-8.2) Albumin 3.3 G/DL (3.4-5.0) Globulin 4.3 g/dL Albumin/Globulin Ratio 0.8 (1.0-2.7) Lipase 91 U/L (73-393) Human Chorionic Gonadotropin, Quant 10214 mIU/mL (1-6) CT/MRI/US Diagnostic Results CT/MRI/US Diagnostic Results : Imaging Test Ordered: OB US Impression IUP noted. +FHR. no blood or free fluid. Last Vital Signs Date Time Temp Pulse Resp B/P (MAP) Pulse Ox O2 Delivery O2 Flow Rate FiO2 09/24/17 20:35 98.6 09/24/17 20:00 73 18 110/67 98 Room Air Status: improved Disposition: HOME, SELF-CARE Condition: Stable Scripts Acetaminophen* (TYLENOL EXTRA STRENGTH*) 500 Mg Tablet 500 MG ORAL Q8H PRN for Prn Headache/Temp > 101, #30 TAB 0 Refills Prov: Shaq Novoa MD 09/24/17 Referrals: [facility],REFERRING (PCP) Patient Instructions: Threatened Miscarriage, [id number] Shaq Novoa MD Sep 24, 2017 22:01
[2017-09-24 22:05] VITALS: BP 118/70
--- NOTE | 2017-09-25 11:11 | Diagnostic Imaging Report ---
Indication: Pelvic pain, patient Technique: Transabdominal images of the gravid uterus Comparison: none Findings: There is a single live intrauterine . This demonstrates positive heart activity, heart rate 144 bpm. Normal amniotic fluid volume, amniotic fluid index approximately 12 cm. Posterior fundal placenta, clears the internal cervical os. Closed cervix, endocervical canal measures 3.7 cm in length. measurements as follows: Biparietal diameter 38 mm, 17 weeks 3 days; head circumference one 40 mm, 17 weeks 3 days; abdominal circumference one 16 mm, 17 weeks 3 days; femur length 21 mm, 16 weeks 2 days. Estimated gestational age by average ultrasound measurements is 17 weeks one day. Estimated date of delivery 03/03/2018. Estimated gestational age by dates is 14 weeks 6 days. Limited assessment of anatomy performed, due to early stage of , emergent nature of the exam. Normal cord insertion, urinary bladder, stomach, spine noted. Impression: 17 week one day, by average of ultrasound measurements, single live intrauterine . No unusual features
== END 2017-09-24 22:05 | disposition home or self-care (01) ==
LOC: EMR 19:45
DX: O20.0 Threatened abortion (principal); Z3A.17 17 weeks gestation of pregnancy
CPT/HCPCS: 36415; 76805; 80053; 81003; 81025; 83690; 84702; 85025; 96361; 96374; 99284

== ENCOUNTER 2018-12-03 21:14 | Emergency (ER) | payer MEDICAID ==
[~2018-12-03] VITALS: Ht 160 cm; Wt 77.1 kg
[~2018-12-03 21:14] MED LIST changes: +TYLENOL EXTRA500 MG ORAL
[2018-12-03] MEDS ORDERED: Methocarbamol 750mg tab ORAL ONE (22:00)
[2018-12-03] MEDS ORDERED: Acetaminophen 500mg (ES) tab ORAL ONE (22:00)
[2018-12-03 22:25] VITALS: BP 114/79
[2018-12-03] MEDS ORDERED: TYLENOL EXTRA500 MG ORAL (22:30)
[2018-12-03] MEDS ORDERED: ROBAXIN-750750 MG PO (22:30)
[2018-12-03] MEDS ORDERED: LIDODERM700 M1 TOPIC (22:30)
[2018-12-03 22:35] VITALS: BP 119/82
--- NOTE | 2018-12-04 06:38 | Emergency Room Report ---
History of Present Illness General Chief Complaint: Lower Back Pain or Injury Source: Patient Present Illness HPI 28-year-old female presents ED for evaluation. Complaining of back pain. 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 States that she did not rest after this and believes the pain got worse because of that. Pain is dull, 7 out of 10, nonradiating. Worse with twisting and bending. Denies bowel or bladder incontinence. Denies leg or motor weakness. No other aggravating relieving factors. Denies any other associated symptoms Allergies: Coded Allergies: [place] (Verified Allergy, Unknown, 10/07/16) Patient History Past Medical History: other - gastritis Past Surgical History: none Pertinent Family History: none Social History: Denies: smoking, alcohol use, drug use Last Menstrual Period: Nov 01 2018 Now: No Immunizations: UTD Reviewed Nursing Documentation: PMH: Agreed; PSxH: Agreed Nursing Documentation-PMH Hx Cardiac Problems: No Hx Cancer: No Hx Gastrointestinal Problems: Yes - Gastritis Hx Neurological Problems: No Review of Systems All Other Systems: negative except mentioned in HPI Physical Exam Vital Signs Date Time Temp Pulse Resp B/P (MAP) Pulse Ox O2 Delivery O2 Flow Rate FiO2 12/03/18 21:28 98.4 69 18 119/82 (94) 99 Room Air Sp02 EP Interpretation: reviewed, normal General Appearance: no apparent distress, alert, GCS 15, non-toxic Head: normocephalic Eyes: bilateral eye normal inspection, bilateral eye PERRL ENT: normal ENT inspection Neck: normal inspection Respiratory: normal inspection Cardiovascular #1: normal inspection Gastrointestinal: normal inspection Rectal: deferred Genitourinary: no CVA tenderness Musculoskeletal: other - paraspinal lumbar tenderness Neurologic: alert, oriented x3, responsive, motor strength/tone normal, sensory intact, speech normal Psychiatric: normal inspection Skin: normal inspection Lymphatic: normal inspection Medical Decision Making Diagnostic Impression: Primary Impression: Back pain Qualified Codes: M54.5 - Low back pain ER Course Hospital Course 28-year-old female presents to ED complaining of 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 After initial history, feels female no acute distress. There is no vertebral body tenderness. No CVA tenderness. Paraspinal lumbar tenderness noted. patient given Tylenol, Robaxin, Lidoderm patch. On reassessment pain improved. Will discharge to home. Safe for discharge close outpatient follow-up. Will provide referrals Diagnosis - back pain Stable and discharged to home with prescription for tylenol, robaxin, lidoderm. Followup with PMD. Return to ED if symptoms recur or worsen Last Vital Signs Date Time Temp Pulse Resp B/P (MAP) Pulse Ox O2 Delivery O2 Flow Rate FiO2 12/03/18 22:35 98.4 18 119/82 99 Room Air 12/03/18 22:25 74 Status: improved Disposition: HOME, SELF-CARE Condition: Stable Scripts Lidocaine (Lidoderm) 1 Each Adh..patch 1 PATCH TOPIC DAILY, #7 PATCH 0 Refills Patch(es) may remain in place for up to 12 hours in any 24-hour period. Prov: Shaq Novoa MD 12/03/18 Methocarbamol* (ROBAXIN-750*) 750 Mg Tablet 750 MG PO TID, #21 TAB 0 Refills Prov: Shaq Novoa MD 12/03/18 Acetaminophen* (TYLENOL EXTRA STRENGTH*) 500 Mg Tablet 500 MG ORAL Q8H PRN for Prn Headache/Temp > 101, #30 TAB 0 Refills Prov: Shaq Novoa MD 12/03/18 [facility] 24 hour /7 days a week by Appointment Only [address] [facility] [address] Departure Forms: Return to Work Return to Work Date: Dec 08, 2018 Work Restrictions: No Heavy Lifting Patient Instructions: Lumbosacral Strain Shaq Novoa MD Dec 04, 2018 06:38
== END 2018-12-03 22:35 | disposition home or self-care (01) ==
LOC: EMR 21:45
DX: M54.5 Low back pain (principal)
CPT/HCPCS: 99282

== ENCOUNTER 2019-11-03 07:17 | Emergency (ER) | payer MEDICAID ==
[~2019-11-03] VITALS: Ht 162.6 cm; Wt 81.6 kg
[~2019-11-03 07:17] MED LIST changes: +LIDODERM700 M1 TOPIC; +ROBAXIN-750750 MG PO
--- NOTE | 2019-11-03 07:30 | NUR ---
ED Nurse Note: Pt ambulated to ED d/t abdominal pain with nausea & vomiting started yesterday morning. Pt is AOx4, denies diarrhea; stated that she has vomited small amount of blood this morning. VSS on triage. Pt's on RA; afebrile. Placed on bed and gown, will continue to monitor.
--- NOTE | 2019-11-03 07:34 | NUR ---
ED Nurse Note: Dr. Ca at bedside.
[2019-11-03 07:35] VITALS: BP 106/60
--- NOTE | 2019-11-03 07:38 | Emergency Room Report ---
History of Present Illness General Chief Complaint: Abdominal Pain Source: Patient Present Illness HPI Patient presents with complaints of mid abdominal pain Now over the past days she has noticed increased diffuse discomfort Reports increased nausea vomiting denies any lower abdominal pain Denies any diarrhea denies any fevers patient initially felt that it was likely related to her gastritis however as the discomfort persisted and went to the mid abdomen She was concerned and came to the ER she just finished her menstrual cycle yesterday denies any fall or trauma Allergies: Coded Allergies: [place] (Verified Allergy, Unknown, 10/07/16) COVID-19 Screening Contact w/high risk pt: No Recent Travel to affected area: No Experienced COVID-19 symptoms?: No Patient History Past Medical History: see triage record Last Menstrual Period: 11/02/19 Now: No Reviewed Nursing Documentation: PMH: Agreed; PSxH: Agreed Nursing Documentation-PMH Past Medical History: No History, Except For Hx Cardiac Problems: No Hx Cancer: No Hx Gastrointestinal Problems: Yes - Gastritis Hx Neurological Problems: No Review of Systems All Other Systems: negative except mentioned in HPI Physical Exam Vital Signs Date Time Temp Pulse Resp B/P (MAP) Pulse Ox O2 Delivery O2 Flow Rate FiO2 11/03/19 07:21 97.9 55 20 106/60 (75) 98 Room Air Sp02 EP Interpretation: reviewed, normal General Appearance: well appearing, no apparent distress Head: normocephalic, atraumatic Eyes: bilateral eye PERRL, bilateral eye EOMI ENT: hearing grossly normal, normal pharynx, TMs + canals normal, uvula midline Neck: full range of motion, supple, no meningismus, no bony tend Respiratory: lungs clear, normal breath sounds, no rhonchi, no respiratory distress, no retraction, no accessory muscle use Cardiovascular #1: normal peripheral pulses, regular rate, rhythm, no edema, no gallop, no JVD, no murmur Gastrointestinal: normal bowel sounds, non tender - On palpation however subjectively points to mid epigastric region for the discomfort, soft, no mass, no organomegaly, non-distended, no guarding, no hernia, no pulsatile mass, no rebound Genitourinary: no CVA tenderness Musculoskeletal: normal inspection Neurologic: motor strength/tone normal, 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, oriented x3 , sensory intact, responsive Psychiatric: mood/affect normal Skin: no rash Lymphatic: normal inspection, no adenopathy Medical Decision Making Diagnostic Impression: Primary Impression: Abdominal pain ER Course With the patient's history and examination, multiple differentials considered, including but not limited to , ectopic , ovarian torsion, gastritis, cholecystitis, pancreatitis, appendicitis Patient had extensive blood work and medication initiated for discomfort and nausea Patient's blood work is at baseline levels On reevaluation feels significantly improved there is likely some intestinal Process such as enteritis or gastritis however my consideration for emergent process such as appendicitis is low Repeat abdominal exam is soft and benign and the patient stable for initial conservative outpatient trial Labs Test 11/03/19 07:32 11/03/19 07:40 Urine Color Yellow Urine Appearance Clear Urine pH 5 (4.5-8.0) Urine Specific [place] 1.030 (1.005-1.035) Urine Protein 2+ (NEGATIVE) Urine Glucose (UA) Negative (NEGATIVE) Urine Ketones 4+ (NEGATIVE) Urine Blood 1+ (NEGATIVE) Urine Nitrite Negative (NEGATIVE) Urine Bilirubin Negative (NEGATIVE) Urine Urobilinogen Normal MG/DL (0.0-1.0) Urine Leukocyte Esterase Negative (NEGATIVE) Urine RBC 0-2 /HPF (0 - 2) Urine WBC 2-4 /HPF (0 - 2) Urine Squamous Epithelial Cells Few /LPF (NONE/OCC) Urine Bacteria Few /HPF (NONE) Urine Mucus Moderate /LPF (NONE/OCC) Urine HCG, Qualitative Negative (NEGATIVE) Urine Opiates Screen Negative (NEGATIVE) Urine Barbiturates Screen Negative (NEGATIVE) Phencyclidine (PCP) Screen Negative (NEGATIVE) Urine Amphetamines Screen Negative (NEGATIVE) Urine Benzodiazepines Screen Negative (NEGATIVE) Urine Cocaine Screen Negative (NEGATIVE) Urine Marijuana (THC) Screen Positive (NEGATIVE) White Blood Count 9.4 K/UL (4.8-10.8) Red Blood Count 4.22 M/UL (4.20-5.40) Hemoglobin 11.3 G/DL (12.0-16.0) Hematocrit 34.7 % (37.0-47.0) Mean Corpuscular Volume 82 FL (80-99) Mean Corpuscular Hemoglobin 26.8 PG (27.0-31.0) Mean Corpuscular Hemoglobin Concent 32.6 G/DL (32.0-36.0) Red Cell Distribution Width 14.9 % (11.6-14.8) Platelet Count 393 K/UL (150-450) Mean Platelet Volume 6.1 FL (6.5-10.1) Neutrophils (%) (Auto) 73.3 % (45.0-75.0) Lymphocytes (%) (Auto) 15.8 % (20.0-45.0) Monocytes (%) (Auto) 9.8 % (1.0-10.0) Eosinophils (%) (Auto) 0.4 % (0.0-3.0) Basophils (%) (Auto) 0.8 % (0.0-2.0) Sodium Level 141 MMOL/L (136-145) Potassium Level 3.9 MMOL/L (3.5-5.1) Chloride Level 105 MMOL/L (98-107) Carbon Dioxide Level 24 MMOL/L (21-32) Anion Gap 12 mmol/L (5-15) Blood Urea Nitrogen 8 mg/dL (7-18) Creatinine 0.8 MG/DL (0.55-1.30) Estimat Glomerular Filtration Rate > 60 mL/min (>60) Glucose Level 108 MG/DL (74-106) Calcium Level 9.1 MG/DL (8.5-10.1) Total Bilirubin 0.3 MG/DL (0.2-1.0) Aspartate Amino Transf (AST/SGOT) 17 U/L (15-37) Alanine Aminotransferase (ALT/SGPT) 25 U/L (12-78) Alkaline Phosphatase 76 U/L (46-116) Total Protein 8.5 G/DL (6.4-8.2) Albumin 4.1 G/DL (3.4-5.0) Globulin 4.4 g/dL Lipase 74 U/L (73-393) Last Vital Signs Date Time Temp Pulse Resp B/P (MAP) Pulse Ox O2 Delivery O2 Flow Rate FiO2 11/03/19 07:21 97.9 55 20 106/60 (75) 98 Room Air Status: improved Disposition: HOME, SELF-CARE Condition: Improved Additional Instructions: Patient is provided with the discharge instructions notified to follow up with primary doctor in the next 2-3 days otherwise return to the er with any worsening symptoms. Please note that this report is being documented using [employer] technology. This can lead to erroneous entry secondary to incorrect interpretation by the dictating instrument. Monique Ca DO November 03, 2019 07:38
[2019-11-03] MEDS ORDERED: Morphine Sulfate 4mg/ml Inj (IV USE ONLY) IVP ONE (07:45)
[2019-11-03 08:01] LABS: ANION GAP 12 mmol/L (5-15); BLOOD UREA NITROGEN 8 mg/dL (7-18); CALCIUM 9.1 MG/DL (8.5-10.1); CARBON DIOXIDE 24 MMOL/L (21-32); CHLORIDE 105 MMOL/L (98-107); CREATININE 0.8 MG/DL (0.55-1.30); POTASSIUM 3.9 MMOL/L (3.5-5.1); SODIUM 141 MMOL/L (136-145)
[2019-11-03 08:02] LABS: BASOPHILS % (AUTO) 0.8 % (0.0-2.0); EOSINOPHILS % (AUTO) 0.4 % (0.0-3.0); HEMATOCRIT 34.7 % (37.0-47.0); HEMOGLOBIN 11.3 G/DL (12.0-16.0); LYMPHOCYTES % (AUTO) 15.8 % (20.0-45.0); MEAN CORPUSCULAR VOLUME 82 FL (80-99); MONOCYTES % (AUTO) 9.8 % (1.0-10.0); NEUTROPHILS % (AUTO) 73.3 % (45.0-75.0); PLATELET COUNT 393 K/UL (150-450); RED BLOOD COUNT 4.22 M/UL (4.20-5.40); RED CELL DISTRIBUTION WIDTH 14.9 % (11.6-14.8); WHITE BLOOD COUNT 9.4 K/UL (4.8-10.8)
[2019-11-03 08:03] LABS: APPEARANCE,URINE CLEAR; BILIRUBIN, URINE NEGATIVE (NEGATIVE); GLUCOSE, URINE (UA) NEGATIVE (NEGATIVE); KETONES,URINE 4+ (NEGATIVE); LEUKOCYTE ESTERASE ,URINE NEGATIVE (NEGATIVE); NITRITE,URINE NEGATIVE (NEGATIVE); PH,URINE 5 (4.5-8.0); PROTEIN,URINE 2+ (NEGATIVE); UROBILINOGEN,URINE NORMAL MG/DL (0.0-1.0)
[2019-11-03 08:04] LABS: ALANINE AMINOTRANSFERASE 25 U/L (12-78); ALBUMIN 4.1 G/DL (3.4-5.0); ASPARTATE AMINO TRANSFERASE 17 U/L (15-37)
[2019-11-03 08:07] LABS: COLOR,URINE YELLOW
[2019-11-03 08:18] LABS: ALKALINE PHOSPHATASE 76 U/L (46-116); BILIRUBIN,TOTAL 0.3 MG/DL (0.2-1.0)
[2019-11-03] MEDS ORDERED: ZOFRAN4 M1 ORAL ×2 (08:21)
[2019-11-03] MEDS ORDERED: NORCO 5-325 TA1 EAC1 ORAL (08:21)
[2019-11-03] MEDS ORDERED: FAMOTIDINE20 MG ORAL ×2 (08:21)
[2019-11-03 08:36] VITALS: BP 110/62
--- NOTE | 2019-11-03 08:36 | NUR ---
ER DISCHARGE NOTE: Pt is cleared to be discharged per ERMD, pt is aox4, on room air, with stable vital signs. pt was given dc and prescription instructions, pt was able to verbalize understanding, pt id band and iv site removed without complications. pt is able to ambulate with steady gait. pt took all belongings.
[2019-11-04] MEDS ORDERED: CARAFATE1 G1 ORAL (21:43)
[2019-11-04] MEDS ORDERED: ZOFRAN4 MG ORAL (21:43)
[2019-11-04] MEDS ORDERED: FAMOTIDINE20 MG ORAL (21:43)
[2019-11-04] MEDS ORDERED: CEPHALEXIN500 M1 ORAL (21:44)
== END 2019-11-03 08:36 | disposition home or self-care (01) ==
LOC: EMR 07:45
DX: R10.9 Unspecified abdominal pain (principal); R11.2 Nausea with vomiting, unspecified
CPT/HCPCS: 36415; 80053; 80307; 81003; 81025; 83690; 85025; 96361; 96374; 96375; J2270; J2405; J7030; Z7502; 99284

== ENCOUNTER 2019-11-04 19:31 | Emergency (ER) | payer MEDICAID ==
[~2019-11-04] VITALS: Ht 160 cm; Wt 77.1 kg
[~2019-11-04 19:31] MED LIST changes: +FAMOTIDINE20 MG ORAL; +ZOFRAN4 M1 ORAL
[2019-11-04 19:41] VITALS: BP 141/92
[2019-11-04] MEDS ORDERED: Dicyclomine HCl 10mg/5ml oral soln ORAL ONE (20:00)
[2019-11-04] MEDS ORDERED: Lidocaine 2% Visc 15ml soln ORAL ONE (20:00)
[2019-11-04] MEDS ORDERED: Mylanta II UD 30ml ORAL ONE (20:00)
--- NOTE | 2019-11-04 20:08 | Emergency Room Report ---
History of Present Illness General Chief Complaint: Abdominal Pain Source: Patient Present Illness HPI 29-year-old female was seen here yesterday presents with nausea vomiting, epigastric pain burning in nature, patient reports that on Friday she was partying with her also may have had some edible's she endorses crampy abdominal pain that comes and goes appears to be aggravated by alcohol as well as cannabis, severity is mild, intermittent patient endorses nausea vomiting no fevers no chills no chest pain or shortness of breath patient presents for evaluation for continued nausea and vomiting. Patient thinks she may have passed out and was found on the floor. Allergies: Coded Allergies: [place] (Verified Allergy, Unknown, 10/07/16) COVID-19 Screening Contact w/high risk pt: Yes Recent Travel to affected area: No Experienced COVID-19 symptoms?: No Patient History Past Medical History: see triage record Last Menstrual Period: 11/03/2019 Now: No : 3 Para: 2 Reviewed Nursing Documentation: PMH: Agreed; PSxH: Agreed Nursing Documentation-PMH Hx Cardiac Problems: No Hx Cancer: No Hx Gastrointestinal Problems: Yes - Gastritis Hx Neurological Problems: No Review of Systems All Other Systems: negative except mentioned in HPI Physical Exam Vital Signs Date Time Temp Pulse Resp B/P (MAP) Pulse Ox O2 Delivery O2 Flow Rate FiO2 11/04/19 19:40 98.4 54 20 127/79 (95) 98 Room Air Sp02 EP Interpretation: reviewed, normal General Appearance: well appearing, no apparent distress, alert Head: normocephalic, atraumatic Eyes: bilateral eye PERRL, bilateral eye EOMI ENT: uvula midline, moist mucus membranes Neck: supple, thyroid normal, supple/symm/no masses Respiratory: lungs clear, no respiratory distress, no retraction, no accessory muscle use Cardiovascular #1: normal peripheral pulses, regular rate, rhythm, no edema, no gallop, no murmur Gastrointestinal: non tender, soft, no guarding, no rebound Musculoskeletal: normal inspection Neurologic: alert, oriented x3 Psychiatric: mood/affect normal Skin: no rash, warm/dry Medical Decision Making Diagnostic Impression: Primary Impression: Use of cannabinoid edibles Additional Impressions: Abdominal pain Qualified Codes: R10.84 - Generalized abdominal pain Gastritis Qualified Codes: K29.00 - Acute gastritis without bleeding UTI (urinary tract infection) Qualified Codes: N30.00 - Acute cystitis without hematuria ER Course 29-year-old female presents with vague abdominal pain consistent with cannabinoid hyperemesis syndrome Patient found to have an incidental UTI will provide antibiotics, counseled patient to stop utilizing any alcohol or cannabis Patient repleted with potassium, antinausea medication was given, will provide patient with outpatient super feet as well as Zofran Disposition home with return precautions abdomen remained soft nontender no rebound no guarding follow-up with PCP Laboratory Tests Test 11/04/19 20:20 11/04/19 20:50 White Blood Count 6.8 K/UL (4.8-10.8) Red Blood Count 4.09 M/UL (4.20-5.40) L Hemoglobin 10.8 G/DL (12.0-16.0) L Hematocrit 35.0 % (37.0-47.0) L Mean Corpuscular Volume 86 FL (80-99) Mean Corpuscular Hemoglobin 26.5 PG (27.0-31.0) L Mean Corpuscular Hemoglobin Concent 31.0 G/DL (32.0-36.0) L Red Cell Distribution Width 16.4 % (11.6-14.8) H Platelet Count 371 K/UL (150-450) Mean Platelet Volume 6.5 FL (6.5-10.1) Neutrophils (%) (Auto) 55.6 % (45.0-75.0) Lymphocytes (%) (Auto) 33.0 % (20.0-45.0) Monocytes (%) (Auto) 8.3 % (1.0-10.0) Eosinophils (%) (Auto) 1.4 % (0.0-3.0) Basophils (%) (Auto) 1.7 % (0.0-2.0) Sodium Level 139 MMOL/L (136-145) Potassium Level 3.0 MMOL/L (3.5-5.1) L Chloride Level 103 MMOL/L (98-107) Carbon Dioxide Level 23 MMOL/L (21-32) Anion Gap 13 mmol/L (5-15) Blood Urea Nitrogen 9 mg/dL (7-18) Creatinine 0.9 MG/DL (0.55-1.30) Estimated Glomerular Filtration Rate > 60 mL/min (>60) Glucose Level 90 MG/DL (74-106) Calcium Level 9.2 MG/DL (8.5-10.1) Total Bilirubin 0.4 MG/DL (0.2-1.0) Aspartate Amino Transferase (AST) 18 U/L (15-37) Alanine Aminotransferase (ALT) 25 U/L (12-78) Alkaline Phosphatase 71 U/L (46-116) Total Protein 8.5 G/DL (6.4-8.2) H Albumin 4.3 G/DL (3.4-5.0) Globulin 4.2 g/dL Albumin/Globulin Ratio 1.0 (1.0-2.7) Lipase 73 U/L (73-393) Urine Color Yellow Urine Appearance Slightly cloudy Urine pH 7 (4.5-8.0) Urine Specific [place] 1.015 (1.005-1.035) Urine Protein 2+ (NEGATIVE) H Urine Glucose (UA) Negative (NEGATIVE) Urine Ketones 4+ (NEGATIVE) H Urine Blood 2+ (NEGATIVE) H Urine Nitrite Negative (NEGATIVE) Urine Bilirubin Negative (NEGATIVE) Urine Urobilinogen 1 MG/DL (0.0-1.0) H Urine Leukocyte Esterase 1+ (NEGATIVE) H Urine RBC 2-4 /HPF (0 - 2) H Urine WBC 0-2 /HPF (0 - 2) Urine Squamous Epithelial Cells Many /LPF (NONE/OCC) H Urine Bacteria Moderate /HPF (NONE) H Urine HCG, Qualitative Negative (NEGATIVE) Urine Opiates Screen Negative (NEGATIVE) Urine Barbiturates Screen Negative (NEGATIVE) Phencyclidine (PCP) Screen Negative (NEGATIVE) Urine Amphetamines Screen Negative (NEGATIVE) Urine Benzodiazepines Screen Negative (NEGATIVE) Urine Cocaine Screen Negative (NEGATIVE) Urine Marijuana (THC) Screen Positive (NEGATIVE) H Last Vital Signs Date Time Temp Pulse Resp B/P (MAP) Pulse Ox O2 Delivery O2 Flow Rate FiO2 11/04/19 19:40 98.4 54 20 127/79 (95) 98 Room Air Disposition: HOME, SELF-CARE Condition: Stable Scripts Ondansetron (Zofran) 4 Mg Tablet 4 MG ORAL Q8H PRN for Nausea & Vomiting, #10 TAB 0 Refills Prov: John Yap MD 11/04/19 Sucralfate* (CARAFATE*) 1 Gm Tablet 1 GM ORAL FOUR TIMES A DAY, #14 TAB Prov: Jonh Yap MD 11/04/19 Famotidine* (Pepcid 20mg tablet*) 20 Mg Tablet 20 MG ORAL TWICE A DAY, #60 TAB 0 Refills Prov: John Yap MD 11/04/19 Referrals: [facility] Patient Instructions: Abdominal Pain, Adult, Cannabis Use Disorder, Urinary Tract Infection, [id number] Additional Instructions: The patient was provided with discharge instructions, notified to follow-up with a primary care doctor and or specialist in the next 24-48 hours, and to return to the ED if they have worsening of their symptoms. Please note that this report is being documented using [employer] technology. This can lead to erroneous entry secondary to incorrect interpretation by the dictating instrument. John Yap MD November 04, 2019 20:08
[2019-11-04 20:43] LABS: BASOPHILS % (AUTO) 1.7 % (0.0-2.0); EOSINOPHILS % (AUTO) 1.4 % (0.0-3.0); HEMOGLOBIN 10.8 G/DL (12.0-16.0); MEAN CORPUSCULAR VOLUME 86 FL (80-99); MONOCYTES % (AUTO) 8.3 % (1.0-10.0); NEUTROPHILS % (AUTO) 55.6 % (45.0-75.0); PLATELET COUNT 371 K/UL (150-450); RED BLOOD COUNT 4.09 M/UL (4.20-5.40); RED CELL DISTRIBUTION WIDTH 16.4 % (11.6-14.8); WHITE BLOOD COUNT 6.8 K/UL (4.8-10.8)
[2019-11-04] MEDS ORDERED: Acetaminophen 500mg (ES) tab ORAL ONE (20:45)
[2019-11-04 20:49] LABS: ANION GAP 13 mmol/L (5-15); BLOOD UREA NITROGEN 9 mg/dL (7-18); CALCIUM 9.2 MG/DL (8.5-10.1); CARBON DIOXIDE 23 MMOL/L (21-32); CHLORIDE 103 MMOL/L (98-107); CREATININE 0.9 MG/DL (0.55-1.30); SODIUM 139 MMOL/L (136-145)
[2019-11-04 20:53] LABS: ALANINE AMINOTRANSFERASE 25 U/L (12-78); ALBUMIN 4.3 G/DL (3.4-5.0); ALKALINE PHOSPHATASE 71 U/L (46-116); ASPARTATE AMINO TRANSFERASE 18 U/L (15-37); BILIRUBIN,TOTAL 0.4 MG/DL (0.2-1.0)
[2019-11-04 21:11] LABS: APPEARANCE,URINE SLIGHTLY CLOUDY; BILIRUBIN, URINE NEGATIVE (NEGATIVE); GLUCOSE, URINE (UA) NEGATIVE (NEGATIVE); KETONES,URINE 4+ (NEGATIVE); LEUKOCYTE ESTERASE ,URINE 1+ (NEGATIVE); NITRITE,URINE NEGATIVE (NEGATIVE); PH,URINE 7 (4.5-8.0); PROTEIN,URINE 2+ (NEGATIVE); UROBILINOGEN,URINE 1 MG/DL (0.0-1.0)
[2019-11-04 21:15] LABS: COLOR,URINE YELLOW
[2019-11-04] MEDS ORDERED: Hydromorphone 0.5mg/0.5ml inj IVP ONE (21:15)
[2019-11-04] MEDS ORDERED: FAMOTIDINE20 MG ORAL (21:43)
[2019-11-04] MEDS ORDERED: ZOFRAN4 MG ORAL (21:43)
[2019-11-04] MEDS ORDERED: CARAFATE1 G1 ORAL (21:43)
[2019-11-04] MEDS ORDERED: CEPHALEXIN500 M1 ORAL (21:44)
== END 2019-11-04 22:10 | disposition home or self-care (01) ==
LOC: EMR 22:06
DX: F12.90 Cannabis use, unspecified, uncomplicated (principal); R10.84 Generalized abdominal pain; K29.00 Acute gastritis without bleeding; N30.00 Acute cystitis without hematuria; Z91.018 Allergy to other foods
CPT/HCPCS: 36415; 80053; 80307; 81003; 81025; 83690; 85025; 87086; 96361; 96374; 96375; 96376; J1170; J2405; J7030; S0028; Z7502; 99284; J8499

== ENCOUNTER 2019-11-07 14:00 | Emergency (ER) | payer MEDICAID ==
[~2019-11-07] VITALS: Ht 160 cm; Wt 77.1 kg
[~2019-11-07 14:00] MED LIST changes: +CARAFATE1 G1 ORAL; +CEPHALEXIN500 M1 ORAL; +ZOFRAN4 MG ORAL
--- NOTE | 2019-11-07 14:10 | NUR ---
ED Nurse Note: Pt ambulated to ED from home d/t abdominal pain and vomiting x 6 days. Pt is AOx4, calm and cooperative, per pt she has been recently diagnosed with gastritis. last BM was 4 days ago. Placed on bed and gown; VSS, on RA, afebrile on triage. Will continue to monitor.
--- NOTE | 2019-11-07 14:29 | NUR ---
ED Nurse Note: Blood and urine specimen sent to labs.
[2019-11-07 14:30] VITALS: BP 125/84
[2019-11-07 14:53] LABS: APPEARANCE,URINE SLIGHTLY CLOUDY; BILIRUBIN, URINE NEGATIVE (NEGATIVE); COLOR,URINE AMBER; GLUCOSE, URINE (UA) NEGATIVE (NEGATIVE); KETONES,URINE 4+ (NEGATIVE); LEUKOCYTE ESTERASE ,URINE 1+ (NEGATIVE); NITRITE,URINE NEGATIVE (NEGATIVE); PH,URINE 6 (4.5-8.0); PROTEIN,URINE 2+ (NEGATIVE); UROBILINOGEN,URINE 1 MG/DL (0.0-1.0)
[2019-11-07 14:54] LABS: BASOPHILS % (AUTO) 1.8 % (0.0-2.0); EOSINOPHILS % (AUTO) 1.8 % (0.0-3.0); HEMATOCRIT 35.7 % (37.0-47.0); HEMOGLOBIN 11.9 G/DL (12.0-16.0); LYMPHOCYTES % (AUTO) 31.7 % (20.0-45.0); MEAN CORPUSCULAR VOLUME 80 FL (80-99); MONOCYTES % (AUTO) 8.9 % (1.0-10.0); NEUTROPHILS % (AUTO) 55.7 % (45.0-75.0); PLATELET COUNT 394 K/UL (150-450); RED BLOOD COUNT 4.44 M/UL (4.20-5.40); WHITE BLOOD COUNT 6.3 K/UL (4.8-10.8)
[2019-11-07] MEDS ORDERED: Ketorolac 30mg Inj IV ONE (15:00)
[2019-11-07 15:25] LABS: ALANINE AMINOTRANSFERASE 37 U/L (12-78); ALBUMIN 4.2 G/DL (3.4-5.0); ALKALINE PHOSPHATASE 67 U/L (46-116); ANION GAP 15 mmol/L (5-15); ASPARTATE AMINO TRANSFERASE 35 U/L (15-37); BILIRUBIN,TOTAL 0.4 MG/DL (0.2-1.0); BLOOD UREA NITROGEN 7 mg/dL (7-18); CARBON DIOXIDE 23 MMOL/L (21-32); CHLORIDE 100 MMOL/L (98-107); CREATININE 0.7 MG/DL (0.55-1.30); SODIUM 138 MMOL/L (136-145)
[2019-11-07 15:41] LABS: POTASSIUM 2.7 MMOL/L (3.5-5.1)
--- NOTE | 2019-11-07 16:16 | Emergency Room Report ---
History of Present Illness General Chief Complaint: Abdominal Pain Source: Medical Record Present Illness HPI 29-year-old female with no significant past medical history here complaining of 4 days of lower abdominal pain with urinary frequency. Also complains of 2 bouts of nonbloody emesis and denies any diarrhea or constipation. Patient reports that she has not been able to eat anything in the past few days and that is the reason why she has not made any bowel movement however usually her bowel movements are within normal limits. Denies any fever and chills, cough and congestion, shortness of breath. 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 Has been tested for coronavirus about a month ago and has been tested negative. Denies any hematuria, dysuria, flank pain, and other associate symptoms. Denies . Reports that she uses edible marijuana however denies tobacco smoke and other drug use. Denies any alcohol intake. Allergies: Coded Allergies: [place] (Verified Allergy, Unknown, 10/07/16) COVID-19 Screening Contact w/high risk pt: No Recent Travel to affected area: No Experienced COVID-19 symptoms?: No Patient History Past Medical History: see triage record Past Surgical History: none Pertinent Family History: none Social History: Reports: drug use - edible marijuana Last Menstrual Period: 11/02/19 Now: No Immunizations: UTD Reviewed Nursing Documentation: PMH: Agreed; PSxH: Agreed Nursing Documentation-PMH Past Medical History: No History, Except For Hx Cardiac Problems: No Hx Cancer: No Hx Gastrointestinal Problems: Yes - Gastritis Hx Neurological Problems: No Review of Systems All Other Systems: negative except mentioned in HPI Physical Exam Vital Signs Date Time Temp Pulse Resp B/P (MAP) Pulse Ox O2 Delivery O2 Flow Rate FiO2 11/07/19 14:03 98.4 60 16 125/84 (98) 99 Room Air Sp02 EP Interpretation: reviewed, normal General Appearance: alert, GCS 15, non-toxic, mild distress Head: normocephalic, atraumatic Eyes: bilateral eye normal inspection, bilateral eye PERRL ENT: hearing grossly normal, normal pharynx, no angioedema, normal voice Neck: full range of motion, supple/symm/no masses Respiratory: chest non-tender, lungs clear, normal breath sounds, no rhonchi, no respiratory distress, no retraction, no wheezing, speaking full sentences Cardiovascular #1: regular rate, rhythm, no edema, no murmur Cardiovascular #2: 2+ radial (R), 2+ radial (L) Gastrointestinal: non tender, soft, no mass Genitourinary: no CVA tenderness Musculoskeletal: back normal Neurologic: alert, motor strength/tone normal, oriented x3, sensory intact, responsive, speech normal Psychiatric: judgement/insight normal, memory normal, mood/affect normal, no suicidal/homicidal ideation Skin: no rash Lymphatic: no adenopathy Medical Decision Making PA Attestation All diagnoses and treatment plans were reviewed and discussed with my supervising physician Dr. Doan Diagnostic Impression: Primary Impression: UTI (urinary tract infection) Additional Impression: Nausea & vomiting ER Course 29-year-old female with no significant past medical history here complaining of 4 days of lower abdominal pain with urinary frequency. Also complains of 2 bouts of nonbloody emesis and denies any diarrhea or constipation. Patient reports that she has not been able to eat anything in the past few days and that is the reason why she has not made any bowel movement however usually her bowel movements are within normal limits. Denies any fever and chills, cough and congestion, shortness of breath. 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 Has been tested for coronavirus about a month ago and has been tested negative. Denies any hematuria, dysuria, flank pain, and other associate symptoms. Denies . Reports that she uses edible marijuana however denies tobacco smoke and other drug use. Denies any alcohol intake. Ddx considered but are not limited to: UTI, pyelonephritis, urinary incontinence , prolapsed bladder, marijuana abuse Vital signs: are WNL, pt. is afebrile H&PE are most consistent with: UTI, nausea vomiting ORDERS: UA, urine cx, urine , tox, EtOH level, CBC, Pepcid, Zofran, Keflex ED INTERVENTIONS: NS bolus, potassium chloride as patient was slightly hypokalemic secondary to multiple bouts of emesis DISCHARGE: At this time pt. is stable for d/c to home. Will provide printed patient care instructions, and any necessary prescriptions. Care plan and follow up instructions have been discussed with the patient prior to discharge. Patient to increase oral hydration especially electrolyte water. Patient, to keep a brat diet, avoid using marijuana, if worsening symptoms return to the emergency room Last Vital Signs Date Time Temp Pulse Resp B/P (MAP) Pulse Ox O2 Delivery O2 Flow Rate FiO2 11/07/19 15:28 98.4 11/07/19 14:30 60 16 Room Air 11/07/19 14:30 125/84 99 Disposition: HOME, SELF-CARE Condition: Stable Scripts Cephalexin* (KEFLEX*) 500 Mg Capsule 500 MG ORAL EVERY 12 HOURS for 7 Days, #14 CAP 0 Refills Prov: Romaine Ervin 11/07/19 Famotidine* (Pepcid 20mg tablet*) 20 Mg Tablet 20 MG ORAL DAILY, #30 TAB 0 Refills Prov: Romaine Ervin 11/07/19 Ondansetron (Zofran) 4 Mg Tablet 4 MG ORAL Q6H PRN for Nausea & Vomiting, #14 TAB Prov: Romaine Ervin 11/07/19 Referrals: [facility],REFERRING (PCP) Patient Instructions: Abdominal Pain, Adult, Urinary Tract Infection, Easy-to- Read Additional Instructions: Increase oral hydration especially electrolyte water, take medication as directed, follow with primary doctor, if worsening symptoms return to the emergency room Romaine Ervin November 07, 2019 16:16
[2019-11-07] MEDS ORDERED: CEPHALEXIN500 MG ORAL (16:18)
[2019-11-07] MEDS ORDERED: FAMOTIDINE20 MG ORAL (16:18)
[2019-11-07] MEDS ORDERED: ZOFRAN4 M1 ORAL (16:18)
[2019-11-07 17:20] VITALS: BP 124/82
--- NOTE | 2019-11-07 17:20 | NUR ---
ER DISCHARGE NOTE: Patient is cleared to be discharged per ERMD, pt is aox4, on room air, with stable vital signs. pt was given dc and prescription instructions, pt was able to verbalize understanding, pt id band and iv site removed without complications. pt is able to ambulate with steady gait. pt took all belongings.
== END 2019-11-07 17:20 | disposition home or self-care (01) ==
LOC: EMR 14:27
DX: N39.0 Urinary tract infection, site not specified (principal); R11.2 Nausea with vomiting, unspecified; E87.6 Hypokalemia
CPT/HCPCS: 36415; 80053; 81003; 81025; 83690; 85025; 87086; 96361; 96365; 96375; G0480; J1885; J2405; J2550; J3480; J7030; S0028; Z7502; 99284; J8499

== ENCOUNTER → 2019-12-12 | Emergency (ER) | payer MEDICAID ==
[~2019-12-12] VITALS: Ht 160 cm; Wt 77.1 kg
[~2019-12-12] MED LIST changes: +CEPHALEXIN500 MG ORAL; +DiphenhydrAMINE 50mg/ml Inj IVP ONE; +MYLANTA MAXIMU355 ML PO; +Metoclopramide 10mg/2ml Inj IVP ONE; +Morphine Sulfate 4mg/ml Inj (IV USE ONLY) IVP ONE; +ONDANSETRON ODT4 MG BC; +PHENERGAN SUPP25 MG RECTAL; +PROMETHAZINE HC25 M1 ORAL
--- NOTE | 2019-12-12 18:57 | NUR ---
ED Nurse Note: Pt walked in from home c/o lower abd pain with n/v since yesterday. Pt vomited in triage, yellow/green emesis. HR 50 bpm. All other vital signs stable as documented. Hx of cyclical vomiting. Respirations even and unlabored on room air.
--- NOTE | 2019-12-12 19:05 | NUR ---
ED Nurse Note: Report received from Janell Sanchez RN.
--- NOTE | 2019-12-12 19:05 | NUR ---
HAND-OFF: Report given to KAREN Gonzales. Pt in stable condition; plan of care endorsed.
--- NOTE | 2019-12-12 19:09 | Emergency Room Report ---
History of Present Illness General Chief Complaint: Abdominal Pain Source: Patient Present Illness HPI Patient presents with increased abdominal pain for the last 4 to 5 days relieved by moving her bowels. Since yesterday she has been vomiting and the pain has been constant. She tried taking Zofran yesterday without help. In addition she tried Tylenol No. 3. In the past she has had problems with cannabis use and a gastritis along with intractable vomiting. This feels similar to that but also she has lower abdominal pain. She denies vomiting blood or coffee grounds. She denies melena or abnormal stool. Her menstruation ended yesterday. It was heavier than usual. She is trying to get but does not feel at this time. She denies fevers or chills. She has been coughing up a little bit of phlegm. She denies use of cannabis or alcohol at this time. She rates the pain 10/10. There is some burning quality and also aching. No sore throat, chest pain, palpitations, dysuria, shortness of breath, joint pain, rashes, depression, anxiety, visual changes, dizziness, headache. 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 Reviewed Nursing Documentation: PMH: Agreed; PSxH: Agreed Nursing Documentation-PMH Past Medical History: No History, Except For Hx Cardiac Problems: No Hx Cancer: No Hx Gastrointestinal Problems: Yes - Gastritis Hx Neurological Problems: No Review of Systems All Other Systems: negative except mentioned in HPI Physical Exam Vital Signs Date Time Temp Pulse Resp B/P (MAP) Pulse Ox O2 Delivery O2 Flow Rate FiO2 12/12/19 18:51 98.2 50 20 144/80 (101) 98 Room Air Sp02 EP Interpretation: reviewed, normal General Appearance: GCS 15, non-toxic, mild distress - persistent vomiting Head: normocephalic Eyes: bilateral eye normal inspection, bilateral eye PERRL, bilateral eye EOMI ENT: moist mucus membranes Neck: supple Respiratory: lungs clear, normal breath sounds Cardiovascular #1: regular rate, rhythm Cardiovascular #2: 2+ radial (R) Gastrointestinal: non-distended, no guarding, no rebound, abnormal bowel sounds - decreased, tenderness - minimal Genitourinary: no CVA tenderness Musculoskeletal: back normal, normal range of motion, gait/station normal Neurologic: alert, oriented x3, grossly normal Psychiatric: other - Slightly depressed and vomiting Skin: no rash, warm/dry Medical Decision Making Diagnostic Impression: Primary Impression: Abdominal pain Qualified Codes: R10.9 - Unspecified abdominal pain Additional Impression: Gastritis Qualified Codes: K29.00 - Acute gastritis without bleeding ER Course Patient presents with abdominal pain and vomiting. Differential includes early , ectopic, gastritis, pancreatitis, THC related abdominal pain and vomiting amongst others. Patient evaluated with labs. Patient treated with IV hydration, Pepcid, Reglan, Benadryl and morphine. Based on history and exam imaging not indicated unless pain increases. Labs with normal white count, slightly low hemoglobin, normal CMP and lipase. Urinalysis unremarkable. Patient tolerating p.o. Abdomen is soft and pain is greatly improved. Abdomen soft and she denies tenderness. Discussed findings with patient and treatment plan. She requested 1 more dose of Zofran as she still felt a little bit of nausea. Patient stable for outpatient observation and treatment. Laboratory Tests Test 12/12/19 19:05 White Blood Count 8.5 K/UL (4.8-10.8) Red Blood Count 4.22 M/UL (4.20-5.40) Hemoglobin 11.3 G/DL (12.0-16.0) L Hematocrit 37.6 % (37.0-47.0) Mean Corpuscular Volume 89 FL (80-99) Mean Corpuscular Hemoglobin 26.7 PG (27.0-31.0) L Mean Corpuscular Hemoglobin Concent 30.0 G/DL (32.0-36.0) L Red Cell Distribution Width 17.0 % (11.6-14.8) H Platelet Count 369 K/UL (150-450) Mean Platelet Volume 6.5 FL (6.5-10.1) Neutrophils (%) (Auto) 86.7 % (45.0-75.0) H Lymphocytes (%) (Auto) 9.1 % (20.0-45.0) L Monocytes (%) (Auto) 1.8 % (1.0-10.0) Eosinophils (%) (Auto) 0.0 % (0.0-3.0) Basophils (%) (Auto) 0.4 % (0.0-2.0) Urine Color Pale yellow Urine Appearance Cloudy Urine pH 6 (4.5-8.0) Urine Specific [place] 1.025 (1.005-1.035) Urine Protein 2+ (NEGATIVE) H Urine Glucose (UA) Negative (NEGATIVE) Urine Ketones 4+ (NEGATIVE) H Urine Blood 1+ (NEGATIVE) H Urine Nitrite Negative (NEGATIVE) Urine Bilirubin Negative (NEGATIVE) Urine Urobilinogen Normal MG/DL (0.0-1.0) Urine Leukocyte Esterase Negative (NEGATIVE) Urine RBC 5-10 /HPF (0 - 2) H Urine WBC 0-2 /HPF (0 - 2) Urine Squamous Epithelial Cells Many /LPF (NONE/OCC) H Urine Amorphous Sediment Moderate /LPF (NONE) H Urine Bacteria Few /HPF (NONE) Urine HCG, Qualitative Negative (NEGATIVE) Sodium Level 140 MMOL/L (136-145) Potassium Level 3.8 MMOL/L (3.5-5.1) Chloride Level 103 MMOL/L (98-107) Carbon Dioxide Level 21 MMOL/L (21-32) Anion Gap 16 mmol/L (5-15) H Blood Urea Nitrogen 9 mg/dL (7-18) Creatinine 1.0 MG/DL (0.55-1.30) Estimated Glomerular Filtration Rate > 60 mL/min (>60) Glucose Level 140 MG/DL (74-106) H Calcium Level 9.3 MG/DL (8.5-10.1) Total Bilirubin 0.2 MG/DL (0.2-1.0) Aspartate Amino Transferase (AST) 24 U/L (15-37) Alanine Aminotransferase (ALT) 26 U/L (12-78) Alkaline Phosphatase 73 U/L (46-116) Total Protein 8.4 G/DL (6.4-8.2) H Albumin 4.2 G/DL (3.4-5.0) Globulin 4.2 g/dL Albumin/Globulin Ratio 1.0 (1.0-2.7) Lipase 47 U/L (73-393) L Last Vital Signs Date Time Temp Pulse Resp B/P (MAP) Pulse Ox O2 Delivery O2 Flow Rate FiO2 12/12/19 23:15 98.0 55 12 132/76 98 Room Air Status: improved Disposition: HOME, SELF-CARE Condition: Improved Scripts Ondansetron Odt* (ZOFRAN ODT*) 4 Mg Tab.rapdis 4 MG BC EVERY 8 HOURS, #10 TAB 1 Refill Prov: Hair Renee MD 12/12/19 Mag Hydrox/Aluminum Hyd/Simeth (Mylanta Maximum Strength Liq) 355 Ml Oral.susp 30 ML PO Q6HR PRN for For Pain, #240 ML Prov: Hair Renee MD 12/12/19 Famotidine* (Pepcid 20mg tablet*) 20 Mg Tablet 20 MG ORAL DAILY, #30 TAB 0 Refills Prov: Hair Renee MD 12/12/19 Hair Renee MD Dec 12, 2019 19:09
[2019-12-12 19:18] LABS: APPEARANCE,URINE CLOUDY; BILIRUBIN, URINE NEGATIVE (NEGATIVE); COLOR,URINE PALE YELLOW; GLUCOSE, URINE (UA) NEGATIVE (NEGATIVE); KETONES,URINE 4+ (NEGATIVE); LEUKOCYTE ESTERASE ,URINE NEGATIVE (NEGATIVE); NITRITE,URINE NEGATIVE (NEGATIVE); PH,URINE 6 (4.5-8.0); PROTEIN,URINE 2+ (NEGATIVE); UROBILINOGEN,URINE NORMAL MG/DL (0.0-1.0)
[2019-12-12 19:23] LABS: HEMATOCRIT 37.6 % (37.0-47.0); HEMOGLOBIN 11.3 G/DL (12.0-16.0); MEAN CORPUSCULAR VOLUME 89 FL (80-99); PLATELET COUNT 369 K/UL (150-450); RED BLOOD COUNT 4.22 M/UL (4.20-5.40); WHITE BLOOD COUNT 8.5 K/UL (4.8-10.8)
[2019-12-12 19:24] LABS: BASOPHILS % (AUTO) 0.4 % (0.0-2.0); LYMPHOCYTES % (AUTO) 9.1 % (20.0-45.0); MONOCYTES % (AUTO) 1.8 % (1.0-10.0); NEUTROPHILS % (AUTO) 86.7 % (45.0-75.0)
[2019-12-12 19:33] VITALS: BP 128/76
[2019-12-12 19:38] LABS: ANION GAP 16 mmol/L (5-15); BLOOD UREA NITROGEN 9 mg/dL (7-18); CALCIUM 9.3 MG/DL (8.5-10.1); CARBON DIOXIDE 21 MMOL/L (21-32); CHLORIDE 103 MMOL/L (98-107); POTASSIUM 3.8 MMOL/L (3.5-5.1); SODIUM 140 MMOL/L (136-145)
[2019-12-12 19:42] LABS: ALANINE AMINOTRANSFERASE 26 U/L (12-78); ALBUMIN 4.2 G/DL (3.4-5.0); ALKALINE PHOSPHATASE 73 U/L (46-116); ASPARTATE AMINO TRANSFERASE 24 U/L (15-37); BILIRUBIN,TOTAL 0.2 MG/DL (0.2-1.0)
--- NOTE | 2019-12-12 19:43 | NUR ---
ED Nurse Note: Patient is more comfortable right now, patient not nauseated and vomiting. Cardiac rate 48-52bpm. ERMD notified and aware
--- NOTE | 2019-12-12 22:25 | NUR ---
ED Nurse Note: Oral fluids approx 1/2 cup of water given to the patient. Fluids was tolerated
--- NOTE | 2019-12-12 22:40 | NUR ---
ED Nurse Note: Patient requested zofran iv before discharge. ERMD notified
[2019-12-12 23:15] VITALS: BP 132/76
== END | disposition home or self-care (01) ==
LOC: EMR 19:14
DX: K29.00 Acute gastritis without bleeding (principal); R10.9 Unspecified abdominal pain; Z91.018 Allergy to other foods; F32.9 Major depressive disorder, single episode, unspecified; R11.0 Nausea
CPT/HCPCS: 36415; 80053; 81003; 81025; 83690; 85025; 96361; 96374; 96375; J1200; J2270; J2405; J2765; J7030; S0028; Z7502; 99284

== ENCOUNTER 2019-12-14 09:42 | Emergency (ER) | payer MEDICAID ==
[~2019-12-14] VITALS: Ht 160 cm; Wt 77.1 kg
[~2019-12-14 09:42] MED LIST changes: -DiphenhydrAMINE 50mg/ml Inj IVP ONE; -Metoclopramide 10mg/2ml Inj IVP ONE; -Morphine Sulfate 4mg/ml Inj (IV USE ONLY) IVP ONE; -PHENERGAN SUPP25 MG RECTAL; -PROMETHAZINE HC25 M1 ORAL
[2019-12-14 10:01] VITALS: BP 143/81
--- NOTE | 2019-12-14 10:05 | Emergency Room Report ---
History of Present Illness General Chief Complaint: Abdominal Pain Source: Patient Present Illness HPI Patient has had intractable vomiting for the last 4 days. She was seen Friday here. She denies vomiting blood. She also has epigastric and lower abdominal pain. She took Zofran this morning and it did not help. She has had gastritis in the past. Prior to the 4 days that she was having intermittent cramping that was relieved with moving her bowels. She has not moved her bowels for 3 days. She rates the pain 10/10 fairly diffuse but more epigastric. Does not radiate towards her back. In the past she has been admitted for intractable vomiting and hypokalemia. This was related to cannabis. She also used to use alcohol. She stopped both cannabis and alcohol. No fevers, chills, sore throat, chest pain, palpitations, dysuria, abdominal pain, shortness of breath, joint pain, rashes, depression, anxiety, visual changes, dizziness, headache. Allergies: Coded Allergies: [place] (Verified Allergy, Unknown, 10/07/16) Patient History Past Medical History: see triage record, old chart reviewed Social History: Reports: alcohol use - In the past, drug use - Prior use of cannabis none recently; Denies: smoking Social History Narrative RN Reviewed Nursing Documentation: PMH: Agreed; PSxH: Agreed Review of Systems All Other Systems: negative except mentioned in HPI Physical Exam Vital Signs Date Time Temp Pulse Resp B/P (MAP) Pulse Ox O2 Delivery O2 Flow Rate FiO2 12/14/19 09:45 98.1 46 20 143/81 (101) 100 Room Air Sp02 EP Interpretation: reviewed, normal General Appearance: well appearing, GCS 15, mild distress - Due to due to vomiting Head: normocephalic, atraumatic Eyes: bilateral eye normal inspection, bilateral eye PERRL, bilateral eye EOMI ENT: moist mucus membranes Neck: supple Respiratory: lungs clear, normal breath sounds Cardiovascular #1: regular rate, rhythm Cardiovascular #2: 2+ radial (R) Gastrointestinal: normal inspection, normal bowel sounds, no mass, non- distended, no rebound, guarding - Voluntary, tenderness - Somewhat diffuse but more epigastric Genitourinary: no CVA tenderness Musculoskeletal: back normal, normal range of motion, gait/station normal Neurologic: alert, oriented x3, grossly normal Psychiatric: depressed affect Skin: no rash, warm/dry Medical Decision Making Diagnostic Impression: Primary Impression: Gastritis Qualified Codes: K29.00 - Acute gastritis without bleeding Additional Impressions: Abdominal pain Qualified Codes: R10.13 - Epigastric pain Nausea & vomiting Qualified Codes: R11.2 - Nausea with vomiting, unspecified ER Course Patient presents with persistent vomiting and abdominal pain. Differential includes gastritis, gastroenteritis pancreatitis, gallbladder disease peptic ulcer amongst others. Evaluation with labs. Based on exam no imaging indicated at this time. If labs are abnormal consideration for further imaging. Patient treated with IV hydration, Reglan, Benadryl, Pepcid and morphine. Potassium will be administered IV. White count normal. H&H slightly low. Potassium slightly low. Patient greatly improved. Tolerating ice chips without difficulty and no more vomiting. Abdomen is soft without guarding or rebound. Discussed findings and treatment plan with patient. Discussed the need for outpatient follow-up with regulatory and compliance technician. Patient stable for outpatient observation and treatment. Laboratory Tests Test 12/14/19 09:58 White Blood Count 6.8 K/UL (4.8-10.8) Red Blood Count 4.07 M/UL (4.20-5.40) L Hemoglobin 10.8 G/DL (12.0-16.0) L Hematocrit 35.8 % (37.0-47.0) L Mean Corpuscular Volume 88 FL (80-99) Mean Corpuscular Hemoglobin 26.5 PG (27.0-31.0) L Mean Corpuscular Hemoglobin Concent 30.1 G/DL (32.0-36.0) L Red Cell Distribution Width 16.6 % (11.6-14.8) H Platelet Count 349 K/UL (150-450) Mean Platelet Volume 6.6 FL (6.5-10.1) Neutrophils (%) (Auto) 58.8 % (45.0-75.0) Lymphocytes (%) (Auto) 30.8 % (20.0-45.0) Monocytes (%) (Auto) 8.0 % (1.0-10.0) Eosinophils (%) (Auto) 1.0 % (0.0-3.0) Basophils (%) (Auto) 1.4 % (0.0-2.0) Urine Color Yellow Urine Appearance Clear Urine pH 6 (4.5-8.0) Urine Specific [place] 1.020 (1.005-1.035) Urine Protein 2+ (NEGATIVE) H Urine Glucose (UA) Negative (NEGATIVE) Urine Ketones 4+ (NEGATIVE) H Urine Blood Negative (NEGATIVE) Urine Nitrite Negative (NEGATIVE) Urine Bilirubin Negative (NEGATIVE) Urine Urobilinogen Normal MG/DL (0.0-1.0) Urine Leukocyte Esterase Negative (NEGATIVE) Urine RBC 0-2 /HPF (0 - 2) Urine WBC 2-4 /HPF (0 - 2) Urine Squamous Epithelial Cells Few /LPF (NONE/OCC) Urine Bacteria Occasional /HPF (NONE) Urine Mucus Few /LPF (NONE/OCC) H Urine HCG, Qualitative Negative (NEGATIVE) Sodium Level 138 MMOL/L (136-145) Potassium Level 3.2 MMOL/L (3.5-5.1) L Chloride Level 101 MMOL/L (98-107) Carbon Dioxide Level 24 MMOL/L (21-32) Anion Gap 13 mmol/L (5-15) Blood Urea Nitrogen 8 mg/dL (7-18) Creatinine 1.0 MG/DL (0.55-1.30) Estimated Glomerular Filtration Rate > 60 mL/min (>60) Glucose Level 97 MG/DL (74-106) Calcium Level 9.0 MG/DL (8.5-10.1) Total Bilirubin 0.3 MG/DL (0.2-1.0) Aspartate Amino Transferase (AST) 18 U/L (15-37) Alanine Aminotransferase (ALT) 28 U/L (12-78) Alkaline Phosphatase 65 U/L (46-116) Total Protein 8.1 G/DL (6.4-8.2) Albumin 4.1 G/DL (3.4-5.0) Globulin 4.0 g/dL Albumin/Globulin Ratio 1.0 (1.0-2.7) Lipase 110 U/L (73-393) Last Vital Signs Date Time Temp Pulse Resp B/P (MAP) Pulse Ox O2 Delivery O2 Flow Rate FiO2 12/14/19 11:59 98.5 53 19 132/84 100 Room Air Status: improved Disposition: HOME, SELF-CARE Condition: Improved Scripts Promethazine HCl (Promethegan) 25 Mg Supp.rect 25 MG RECTAL Q8HR PRN for Nausea & Vomiting, #6 SUPP Prov: Hair Renee MD 12/14/19 Promethazine Hcl* (PHENERGAN*) 25 Mg Tablet 25 MG ORAL Q8HR PRN for Nausea & Vomiting, #10 TAB Prov: Hair Renee MD 12/14/19 Hair Renee MD Dec 14, 2019 10:05
[2019-12-14 10:15] LABS: BASOPHILS % (AUTO) 1.4 % (0.0-2.0); HEMATOCRIT 35.8 % (37.0-47.0); HEMOGLOBIN 10.8 G/DL (12.0-16.0); LYMPHOCYTES % (AUTO) 30.8 % (20.0-45.0); MEAN CORPUSCULAR VOLUME 88 FL (80-99); NEUTROPHILS % (AUTO) 58.8 % (45.0-75.0); PLATELET COUNT 349 K/UL (150-450); RED BLOOD COUNT 4.07 M/UL (4.20-5.40); RED CELL DISTRIBUTION WIDTH 16.6 % (11.6-14.8); WHITE BLOOD COUNT 6.8 K/UL (4.8-10.8)
[2019-12-14] MEDS ORDERED: DiphenhydrAMINE 50mg/ml Inj IVP ONE (10:15)
[2019-12-14] MEDS ORDERED: Metoclopramide 10mg/2ml Inj IVP ONE (10:15)
[2019-12-14] MEDS ORDERED: Morphine Sulfate 4mg/ml Inj (IV USE ONLY) IVP ONE (10:15)
[2019-12-14 10:23] LABS: APPEARANCE,URINE CLEAR; BILIRUBIN, URINE NEGATIVE (NEGATIVE); COLOR,URINE YELLOW; GLUCOSE, URINE (UA) NEGATIVE (NEGATIVE); KETONES,URINE 4+ (NEGATIVE); LEUKOCYTE ESTERASE ,URINE NEGATIVE (NEGATIVE); NITRITE,URINE NEGATIVE (NEGATIVE); PH,URINE 6 (4.5-8.0); PROTEIN,URINE 2+ (NEGATIVE); UROBILINOGEN,URINE NORMAL MG/DL (0.0-1.0)
[2019-12-14 10:28] LABS: ANION GAP 13 mmol/L (5-15); BLOOD UREA NITROGEN 8 mg/dL (7-18); CARBON DIOXIDE 24 MMOL/L (21-32); CHLORIDE 101 MMOL/L (98-107); POTASSIUM 3.2 MMOL/L (3.5-5.1); SODIUM 138 MMOL/L (136-145)
[2019-12-14] MEDS ORDERED: HYDROmorphone 1mg/ml Carpuject IVP ONE (10:30)
[2019-12-14 10:32] LABS: ALANINE AMINOTRANSFERASE 28 U/L (12-78); ALBUMIN 4.1 G/DL (3.4-5.0); ALKALINE PHOSPHATASE 65 U/L (46-116); ASPARTATE AMINO TRANSFERASE 18 U/L (15-37); BILIRUBIN,TOTAL 0.3 MG/DL (0.2-1.0)
[2019-12-14] MEDS ORDERED: NS w/KCl 40mEq 1,000 ML IV SCH (10:45)
[2019-12-14 11:35] VITALS: BP 132/79
[2019-12-14 11:59] VITALS: BP 132/84
[2019-12-14] MEDS ORDERED: PHENERGAN SUPP25 MG RECTAL ×2 (12:01)
[2019-12-14] MEDS ORDERED: PROMETHAZINE HC25 M1 ORAL ×2 (12:01)
== END 2019-12-14 12:00 | disposition home or self-care (01) ==
LOC: EMR 10:04
DX: K29.00 Acute gastritis without bleeding (principal); R10.13 Epigastric pain; R11.2 Nausea with vomiting, unspecified
CPT/HCPCS: 36415; 80053; 81003; 81025; 83690; 85025; 96361; 96374; 96375; J1170; J1200; J2270; J2765; J7030; Z7502; 99284

== ENCOUNTER 2019-12-29 08:39 | Emergency (ER) | payer MEDICAID ==
[~2019-12-29] VITALS: Ht 160 cm; Wt 77.1 kg
[~2019-12-29 08:39] MED LIST changes: +PHENERGAN SUPP25 MG RECTAL; +PROMETHAZINE HC25 M1 ORAL
[2019-12-29 08:43] VITALS: BP 111/72
--- NOTE | 2019-12-29 08:43 | NUR ---
ED Nurse Note: Pt. AAOx4 and verbally responsive. Ambulatory. pt ambulated to ED d/t mid-epigastric pain, nausea and vomiting started yesterday at 0400. Took zofran and pepcid yesterday at 0400, 1200 but ineffective. pt. stated. she has 3 episodes of vomiting since last night. denies diarrhea. no s/s of acute repsiratory distress at this time.
--- NOTE | 2019-12-29 09:09 | Emergency Room Report ---
History of Present Illness General Chief Complaint: Abdominal Pain Source: Patient Present Illness HPI Disclaimer: Please note that this report is being documented using DRAGON technology. This can lead to erroneous entry secondary to incorrect interpretation by the dictating instrument. HPI: 29-year-old female with a history of gastritis presents for evaluation of epigastric pain and vomiting. Symptoms began last night. She reports eating some greasy food for dinner but did take her Pepcid at night as she usually does. She reports increased belching, epigastric burning and sharp pain radiating to both quadrants. Denies alcohol use, drug use, history of abdominal surgery. Last vomited 2 hours ago. Persistent cramping. Denies diarrhea, dysuria, hematuria, flank pain, fever, chills, chest pain, shortness of breath. No known sick contacts. 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 EOMI. Cardiovascular: RRR. S1 and S2 normal. No murmur appreciated Resp: Normal work of breathing. No cough, wheezing or crackles appreciated Abdomen: Abdomen is soft, nondistended. Tenderness in the epigastrium and mild tenderness in the left upper and right upper quadrants without rebound, no masses, no guarding. Negative Nguyen's. No lower quadrant tenderness or suprapubic tenderness. No flank pain. Skin: Intact. No abrasions, laceration or rash over the exposed skin MSK: Normal tone and bulk. Moving all extremities. No obvious deformity. Neuro: Awake and alert. Mentating appropriately. Medical Decision Making Diagnostic Impression: Primary Impression: Gastritis ER Course This a 29-year-old female with a history of gastritis presenting for evaluation of abdominal pain and vomiting since last night. Differential includes was not limited to gastritis, gastroenteritis, food poisoning, pancreatitis, cholecystitis, choledocholithiasis, nephrolithiasis, pyelonephritis, UTI, to name a few. Most consistent with gastritis flareup. Patient will be treated with IV fluids, IV antiemetics and IV Pepcid. We will draw labs to evaluate for metabolic abnormalities and as the patient is trying to conceive. She declined GI cocktail stating it usually makes her nausea worse. Labs have returned within normal limits. No evidence of pancreatitis, urinary tract infection, significant kidney or electrolyte abnormalities. Patient feeling better after IV fluids. She was given Toradol for discomfort. test negative. Will change her famotidine prescription to twice daily from daily to better control her GERD symptoms and again reinforced good dietary habits. She will follow-up with her PMD. Stable for outpatient follow-up. Laboratory Tests Test 12/29/19 09:15 White Blood Count 8.9 K/UL (4.8-10.8) Red Blood Count 4.33 M/UL (4.20-5.40) Hemoglobin 11.6 G/DL (12.0-16.0) L Hematocrit 37.3 % (37.0-47.0) Mean Corpuscular Volume 86 FL (80-99) Mean Corpuscular Hemoglobin 26.9 PG (27.0-31.0) L Mean Corpuscular Hemoglobin Concent 31.1 G/DL (32.0-36.0) L Red Cell Distribution Width 15.8 % (11.6-14.8) H Platelet Count 371 K/UL (150-450) Mean Platelet Volume 6.3 FL (6.5-10.1) L Neutrophils (%) (Auto) 70.0 % (45.0-75.0) Lymphocytes (%) (Auto) 22.8 % (20.0-45.0) Monocytes (%) (Auto) 5.3 % (1.0-10.0) Eosinophils (%) (Auto) 0.8 % (0.0-3.0) Basophils (%) (Auto) 1.0 % (0.0-2.0) Urine Color Yellow Urine Appearance Very cloudy Urine pH 5 (4.5-8.0) Urine Specific [place] 1.030 (1.005-1.035) Urine Protein 2+ (NEGATIVE) H Urine Glucose (UA) Negative (NEGATIVE) Urine Ketones 4+ (NEGATIVE) H Urine Blood 1+ (NEGATIVE) H Urine Nitrite Negative (NEGATIVE) Urine Bilirubin Negative (NEGATIVE) Urine Urobilinogen Normal MG/DL (0.0-1.0) Urine Leukocyte Esterase 1+ (NEGATIVE) H Urine RBC 2-4 /HPF (0 - 2) H Urine WBC 2-4 /HPF (0 - 2) Urine Squamous Epithelial Cells Few /LPF (NONE/OCC) Urine Amorphous Sediment Many /LPF (NONE) H Urine Bacteria Few /HPF (NONE) Urine Mucus Occasional /LPF Urine HCG, Qualitative Negative (NEGATIVE) Sodium Level 140 MMOL/L (136-145) Potassium Level 3.7 MMOL/L (3.5-5.1) Chloride Level 103 MMOL/L (98-107) Carbon Dioxide Level 24 MMOL/L (21-32) Anion Gap 13 mmol/L (5-15) Blood Urea Nitrogen 7 mg/dL (7-18) Creatinine 0.8 MG/DL (0.55-1.30) Estimated Glomerular Filtration Rate > 60 mL/min (>60) Glucose Level 103 MG/DL (74-106) Calcium Level 9.1 MG/DL (8.5-10.1) Total Bilirubin 0.4 MG/DL (0.2-1.0) Aspartate Amino Transferase (AST) 16 U/L (15-37) Alanine Aminotransferase (ALT) 32 U/L (12-78) Alkaline Phosphatase 62 U/L (46-116) Total Protein 8.1 G/DL (6.4-8.2) Albumin 4.3 G/DL (3.4-5.0) Globulin 3.8 g/dL Albumin/Globulin Ratio 1.1 (1.0-2.7) Lipase 74 U/L (73-393) Last Vital Signs Date Time Temp Pulse Resp B/P (MAP) Pulse Ox O2 Delivery O2 Flow Rate FiO2 12/29/19 08:43 98.2 62 18 111/72 (85) 98 Room Air Disposition: HOME, SELF-CARE Condition: Stable Scripts Ondansetron Odt* (ZOFRAN ODT*) 4 Mg Tab.rapdis 4 MG BC EVERY 8 HOURS, #10 TAB 1 Refill Prov: Rivas Doan MD 12/29/19 Famotidine* (Pepcid 20mg tablet*) 20 Mg Tablet 20 MG ORAL BID, #30 TAB 0 Refills Prov: Rivas Doan MD 12/29/19 Rivas Doan MD Dec 29, 2019 09:09
--- NOTE | 2019-12-29 09:19 | NUR ---
ED Nurse Note: urine and blood collected and sent to lab
--- NOTE | 2019-12-29 09:23 | NUR ---
ED Nurse Note: pt. was given meds via IV per ERMD's order. pt. tolerated well the meds with no ase noted. turned off the lights in the room to promote relaxation
[2019-12-29 09:36] LABS: EOSINOPHILS % (AUTO) 0.8 % (0.0-3.0); HEMATOCRIT 37.3 % (37.0-47.0); HEMOGLOBIN 11.6 G/DL (12.0-16.0); LYMPHOCYTES % (AUTO) 22.8 % (20.0-45.0); MEAN CORPUSCULAR VOLUME 86 FL (80-99); MONOCYTES % (AUTO) 5.3 % (1.0-10.0); PLATELET COUNT 371 K/UL (150-450); RED BLOOD COUNT 4.33 M/UL (4.20-5.40); RED CELL DISTRIBUTION WIDTH 15.8 % (11.6-14.8); WHITE BLOOD COUNT 8.9 K/UL (4.8-10.8)
[2019-12-29 09:40] LABS: APPEARANCE,URINE VERY CLOUDY; BILIRUBIN, URINE NEGATIVE (NEGATIVE); GLUCOSE, URINE (UA) NEGATIVE (NEGATIVE); KETONES,URINE 4+ (NEGATIVE); LEUKOCYTE ESTERASE ,URINE 1+ (NEGATIVE); NITRITE,URINE NEGATIVE (NEGATIVE); PH,URINE 5 (4.5-8.0); PROTEIN,URINE 2+ (NEGATIVE); UROBILINOGEN,URINE NORMAL MG/DL (0.0-1.0)
[2019-12-29 09:43] LABS: COLOR,URINE YELLOW
[2019-12-29 09:44] LABS: ANION GAP 13 mmol/L (5-15); BLOOD UREA NITROGEN 7 mg/dL (7-18); CALCIUM 9.1 MG/DL (8.5-10.1); CARBON DIOXIDE 24 MMOL/L (21-32); CHLORIDE 103 MMOL/L (98-107); CREATININE 0.8 MG/DL (0.55-1.30); POTASSIUM 3.7 MMOL/L (3.5-5.1); SODIUM 140 MMOL/L (136-145)
[2019-12-29] MEDS ORDERED: Ketorolac 30mg Inj IV ONE (09:45)
[2019-12-29 09:49] LABS: ALANINE AMINOTRANSFERASE 32 U/L (12-78); ALBUMIN 4.3 G/DL (3.4-5.0); ALBUMIN/GLOBULIN RATIO 1.1 (1.0-2.7); ALKALINE PHOSPHATASE 62 U/L (46-116); ASPARTATE AMINO TRANSFERASE 16 U/L (15-37); BILIRUBIN,TOTAL 0.4 MG/DL (0.2-1.0)
[2019-12-29] MEDS ORDERED: FAMOTIDINE20 MG ORAL (09:57)
[2019-12-29] MEDS ORDERED: ONDANSETRON ODT4 MG BC (09:57)
[2019-12-29 11:29] VITALS: BP 111/72
--- NOTE | 2019-12-29 11:30 | NUR ---
ED Nurse Note: Pt cleared by health care Provider for discharge. DC instructions/prescription was given and explained to pt and verbalized understanding of teachings. All medical deviecs such as ID band IV were removed. Pt is AAO x4, ambulatory and left with all personal belongings.
== END 2019-12-29 11:30 | disposition home or self-care (01) ==
LOC: EMR 09:09
DX: K29.70 Gastritis, unspecified, without bleeding (principal)
CPT/HCPCS: 36415; 80053; 81003; 81025; 83690; 85025; 96361; 96374; 96375; 96376; J1885; J2405; J7030; S0028; Z7502; 99284

== ENCOUNTER 2020-02-14 21:05 | Emergency (ER) | payer MEDICAID ==
[~2020-02-14] VITALS: Ht 160 cm; Wt 74.8 kg
[2020-02-14 21:30] VITALS: BP 109/69
[2020-02-14] MEDS ORDERED: Acetaminophen 500mg (ES) tab ORAL ONE (21:45)
[2020-02-14 22:18] LABS: APPEARANCE,URINE SLIGHTLY CLOUDY; BILIRUBIN, URINE NEGATIVE (NEGATIVE); COLOR,URINE YELLOW; GLUCOSE, URINE (UA) NEGATIVE (NEGATIVE); KETONES,URINE NEGATIVE (NEGATIVE); PROTEIN,URINE NEGATIVE (NEGATIVE)
[2020-02-14 22:19] LABS: LEUKOCYTE ESTERASE ,URINE 1+ (NEGATIVE); NITRITE,URINE NEGATIVE (NEGATIVE); UROBILINOGEN,URINE NORMAL MG/DL (0.0-1.0)
[2020-02-14 22:30] VITALS: BP 109/78
--- NOTE | 2020-02-14 22:49 | Emergency Room Report ---
History of Present Illness General Chief Complaint: Multiple Trauma/Fall Source: Patient Present Illness HPI Patient slipped and fell yesterday. She fell backwards and caught herself with her left arm. She has been having upper back and left shoulder and arm pain.. She denies loss of consciousness. She rates the pain 6/10 worse when she tries to move her left arm. She denies neck pain or lower back pain. She is 10 weeks . She denies abdominal pain, vaginal bleeding, discharge or dysuria. Patient seen multiple times over the last few months for gastritis. She is denying pain in her stomach at this time. 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 Patient History Past Medical History: see triage record Social History: Denies: smoking, alcohol use - Prior use of alcohol none recently, drug use - Prior use of cannabis Social History Narrative Currently working -she is a nurse Last Menstrual Period: December 05 Reviewed Nursing Documentation: PMH: Agreed; PSxH: Agreed Nursing Documentation-PMH Hx Cardiac Problems: No Hx Cancer: No Hx Neurological Problems: No Review of Systems Constitutional: Denies: fever Gastrointestinal: Reports: see HPI Genitourinary: Reports: see HPI Musculoskeletal: Reports: see HPI Skin: Denies: rash Neurological: Reports: see HPI Hematologic/Lymphatic: Denies: easy bruising Physical Exam Vital Signs Date Time Temp Pulse Resp B/P (MAP) Pulse Ox O2 Delivery O2 Flow Rate FiO2 02/14/20 21:19 98.4 74 16 109/69 (82) 98 Room Air Sp02 EP Interpretation: reviewed, normal General Appearance: well appearing, no apparent distress, GCS 15 Head: normocephalic, atraumatic Eyes: bilateral eye normal inspection, bilateral eye PERRL, bilateral eye EOMI ENT: moist mucus membranes Neck: full range of motion, supple, no bony tend Respiratory: lungs clear, normal breath sounds, other Cardiovascular #1: regular rate, rhythm Cardiovascular #2: 2+ radial (R) Gastrointestinal: normal inspection, normal bowel sounds, non tender, no mass, non-distended Genitourinary: no CVA tenderness Musculoskeletal: normal range of motion, gait/station normal, tender - Passive range of motion left shoulder but able to lift her hand completely above her shoulder. Some tenderness when she moves her hand towards her back, other - No elbow, wrist or hand tenderness Neurologic: alert, oriented x3, grossly normal Psychiatric: mood/affect normal Skin: no rash, warm/dry Medical Decision Making Diagnostic Impression: Primary Impression: Fall Qualified Codes: W19.XXXA - Unspecified fall, initial encounter Additional Impressions: Shoulder contusion Qualified Codes: S40.012A - Contusion of left shoulder, initial encounter UTI (urinary tract infection) Qualified Codes: N30.00 - Acute cystitis without hematuria 10 weeks gestation of ER Course Patient presents post fall with left shoulder and upper back pain and a history of being 10 months .. Differential includes rotator cuff tear, impingement syndrome, shoulders sprain, back contusion amongst others. Based on exam shoulder sprain is highly suspected. X-rays at this time are not indicated. Urinalysis is obtained. Tylenol administered. Urinalysis reveals pyuria. Macrobid ordered. Pain is improved with Tylenol. Sling applied by RN. Position good. Distal neurovasc intact as examined by me with improved symptoms. Discussed findings with patient and treatment plan. Patient stable for outpatient observation and treatment. Laboratory Tests Test 02/14/20 21:30 Urine Color Yellow Urine Appearance Slightly cloudy Urine pH 6.0 (4.5-8.0) Urine Specific [place] 1.025 (1.005-1.035) Urine Protein Negative (NEGATIVE) Urine Glucose (UA) Negative (NEGATIVE) Urine Ketones Negative (NEGATIVE) Urine Blood Negative (NEGATIVE) Urine Nitrite Negative (NEGATIVE) Urine Bilirubin Negative (NEGATIVE) Urine Urobilinogen Normal MG/DL (0.0-1.0) Urine Leukocyte Esterase 1+ (NEGATIVE) H Urine RBC 0-2 /HPF (0 - 2) Urine WBC 10-15 /HPF (0 - 2) H Urine Squamous Epithelial Cells Many /LPF (NONE/OCC) H Urine Amorphous Sediment Moderate /LPF (NONE) H Urine Bacteria Moderate /HPF (NONE) H Urine HCG, Qualitative Positive (NEGATIVE) Last Vital Signs Date Time Temp Pulse Resp B/P (MAP) Pulse Ox O2 Delivery O2 Flow Rate FiO2 02/14/20 23:00 98.4 70 21 109/78 99 Room Air Status: improved Disposition: HOME, SELF-CARE Condition: Improved Scripts Acetaminophen (Tylenol) 325 Mg Tablet 650 MG ORAL Q6H PRN for Prn Pain/Headache/Temp > 101, #20 TAB 0 Refills Prov: Hair Renee MD 02/14/20 Nitrofurantoin Monohyd/M-Cryst* (MACROBID 100 MG*) 100 Mg Capsule 100 MG ORAL EVERY 12 HOURS, #14 CAP Prov: Hair Renee MD 02/14/20 Referrals: NON PHYSICIAN (PCP) Hair Renee MD Feb 14, 2020 22:49
[2020-02-14] MEDS ORDERED: NITROFURANTOIN100 M2 ORAL (22:51)
[2020-02-14] MEDS ORDERED: TYLENOL325 MG ORAL (22:51)
[2020-02-14 23:00] VITALS: BP 109/78
== END 2020-02-14 23:00 | disposition home or self-care (01) ==
LOC: EMR 21:59
DX: O23.11 Infections of bladder in pregnancy, first trimester (principal); S40.012A Contusion of left shoulder, initial encounter; N30.00 Acute cystitis without hematuria; Z3A.10 10 weeks gestation of pregnancy; W01.0XXA Fall on same level from slipping, tripping and stumbling without subsequent striking against object, initial encounter; Y92.9 Unspecified place or not applicable
CPT/HCPCS: 81003; 81025; 87086; Z7502; 99283

== ENCOUNTER 2020-02-22 20:22 | Emergency (ER) | payer MEDICAID ==
[~2020-02-22] VITALS: Ht 160 cm; Wt 72.6 kg
[~2020-02-22 20:22] MED LIST changes: +TYLENOL325 MG ORAL
[2020-02-22 20:30] VITALS: BP 122/68
[2020-02-22] MEDS ORDERED: Morphine Sulfate 2mg/ml Inj(IV/IM USE ONLY) IVP ONE ×2 (21:00→22:15)
--- NOTE | 2020-02-22 21:03 | Emergency Room Report ---
History of Present Illness General Chief Complaint: Vomiting Source: Patient Present Illness HPI Disclaimer: Please note that this report is being documented using DRAGON technology. This can lead to erroneous entry secondary to incorrect interpretation by the dictating instrument. HPI: 29-year-old female at estimated 12 weeks gestation by LMP presents for evaluation of abdominal pain and vomiting. Symptoms began this morning. Went to bed her usual state of health but awoke today with lower abdominal cramping and several episodes of nonbloody nonbilious emesis. States she can eat. Denies vaginal bleeding or vaginal discharge. Denies dysuria or hematuria. Denies back or flank pain. Has not yet seen CARPET CLEANING TECHNICIAN or had an ultrasound to confirm . Denies fever, chills, chest pain, palpitations , shortness of breath, cough. Her last was a miscarriage requiring a D&C. 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 EOMI. Cardiovascular: RRR. S1 and S2 normal. No murmur appreciated Resp: Normal work of breathing. No cough, wheezing or crackles appreciated Abdomen: Gravid and distended abdomen. Tender to palpation lower quadrants. Skin: Intact. No abrasions, laceration or rash over the exposed skin MSK: Normal tone and bulk. Moving all extremities. No obvious deformity. Neuro: Awake and alert. Mentating appropriately. Medical Decision Making Diagnostic Impression: Primary Impression: Additional Impressions: Abdominal pain Subchorionic hematoma in first trimester ER Course 29-year-old female at estimated 12-week gestation by LMP presents for evaluation of lower pelvic cramping and vomiting. Patient denies bleeding. Differential includes was not limited to ectopic , inevitable , threatened , gastritis, gastroenteritis, UTI, pyelonephritis to name a few. Labs were obtained showing stable hemoglobin levels, signs of mild dehydration, elevated hCG consistent with . Ultrasound and urine are pending. Patient receiving antiemetics, IV fluids, pain medication. 2300: Preliminary ultrasound report shows single intrauterine with heart rate activity. Small subchorionic hemorrhage identified. Vital signs remained stable. Blood type is O+ and does not require RhoGam. No evidence of UTI. Symptoms have improved. Patient stable for outpatient follow-up. Start on prenatals. She will follow-up with her CARPET CLEANING TECHNICIAN from her previous pregnancies. Labs Test 02/22/20 20:45 02/22/20 22:30 White Blood Count 7.3 K/UL (4.8-10.8) Red Blood Count 4.25 M/UL (4.20-5.40) Hemoglobin 11.5 G/DL (12.0-16.0) Hematocrit 36.1 % (37.0-47.0) Mean Corpuscular Volume 85 FL (80-99) Mean Corpuscular Hemoglobin 27.0 PG (27.0-31.0) Mean Corpuscular Hemoglobin Concent 31.8 G/DL (32.0-36.0) Red Cell Distribution Width 16.2 % (11.6-14.8) Platelet Count 399 K/UL (150-450) Mean Platelet Volume 5.9 FL (6.5-10.1) Neutrophils (%) (Auto) 86.7 % (45.0-75.0) Lymphocytes (%) (Auto) 10.2 % (20.0-45.0) Monocytes (%) (Auto) 1.9 % (1.0-10.0) Eosinophils (%) (Auto) 0.1 % (0.0-3.0) Basophils (%) (Auto) 1.1 % (0.0-2.0) Sodium Level 139 MMOL/L (136-145) Potassium Level 3.5 MMOL/L (3.5-5.1) Chloride Level 101 MMOL/L (98-107) Carbon Dioxide Level 18 MMOL/L (21-32) Anion Gap 20 mmol/L (5-15) Blood Urea Nitrogen 5 mg/dL (7-18) Creatinine 0.7 MG/DL (0.55-1.30) Estimat Glomerular Filtration Rate > 60 mL/min (>60) Glucose Level 158 MG/DL (74-106) Calcium Level 9.9 MG/DL (8.5-10.1) Total Bilirubin 0.1 MG/DL (0.2-1.0) Aspartate Amino Transf (AST/SGOT) 25 U/L (15-37) Alanine Aminotransferase (ALT/SGPT) 43 U/L (12-78) Alkaline Phosphatase 57 U/L (46-116) Total Protein 8.6 G/DL (6.4-8.2) Albumin 4.1 G/DL (3.4-5.0) Globulin 4.5 g/dL Albumin/Globulin Ratio 0.9 (1.0-2.7) Lipase 60 U/L (73-393) Human Chorionic Gonadotropin, Quant 538324 mIU/mL (1-6) Urine Color Yellow Urine Appearance Clear Urine pH 5.0 (4.5-8.0) Urine Specific [place] 1.025 (1.005-1.035) Urine Protein 1+ (NEGATIVE) Urine Glucose (UA) 1+ (NEGATIVE) Urine Ketones 4+ (NEGATIVE) Urine Blood Negative (NEGATIVE) Urine Nitrite Negative (NEGATIVE) Urine Bilirubin Negative (NEGATIVE) Urine Urobilinogen Normal MG/DL (0.0-1.0) Urine Leukocyte Esterase Negative (NEGATIVE) Urine RBC 0 /HPF (0 - 2) Urine WBC 2-4 /HPF (0 - 2) Urine Squamous Epithelial Cells Moderate /LPF (NONE/OCC) Urine Amorphous Sediment Few /LPF (NONE) Urine Bacteria Few /HPF (NONE) Urine Opiates Screen Positive (NEGATIVE) Urine Barbiturates Screen Negative (NEGATIVE) Phencyclidine (PCP) Screen Negative (NEGATIVE) Urine Amphetamines Screen Negative (NEGATIVE) Urine Benzodiazepines Screen Negative (NEGATIVE) Urine Cocaine Screen Negative (NEGATIVE) Urine Marijuana (THC) Screen Positive (NEGATIVE) CT/MRI/US Diagnostic Results CT/MRI/US Diagnostic Results : Impression IMPRESSION: Single live intrauterine gestation with sonographic age of 7 weeks 5 days, estimated delivery date of October 05, 2020. A subchronic hemorrhage is seen. Last Vital Signs Date Time Temp Pulse Resp B/P (MAP) Pulse Ox O2 Delivery O2 Flow Rate FiO2 02/22/20 20:30 49 18 Room Air 99 02/22/20 20:30 98.2 122/68 99 Disposition: HOME, SELF-CARE Condition: Stable Scripts Pnv No.115/Iron Fumarate/FA ( 19 Chewable Tablet) 1 Each Tab.chew 1 EACH PO 60, #60 TAB Prov: Rivas Doan MD 02/22/20 Ondansetron Odt* (ZOFRAN ODT*) 4 Mg Tab.rapdis 4 MG BC EVERY 8 HOURS, #10 TAB 1 Refill Prov: Rivas Doan MD 02/22/20 iRvas Doan MD Feb 22, 2020 21:03
[2020-02-22 21:15] LABS: HEMATOCRIT 36.1 % (37.0-47.0); HEMOGLOBIN 11.5 G/DL (12.0-16.0); MEAN CORPUSCULAR VOLUME 85 FL (80-99); PLATELET COUNT 399 K/UL (150-450); RED BLOOD COUNT 4.25 M/UL (4.20-5.40); RED CELL DISTRIBUTION WIDTH 16.2 % (11.6-14.8); WHITE BLOOD COUNT 7.3 K/UL (4.8-10.8)
[2020-02-22 21:16] LABS: BASOPHILS % (AUTO) 1.1 % (0.0-2.0); EOSINOPHILS % (AUTO) 0.1 % (0.0-3.0); LYMPHOCYTES % (AUTO) 10.2 % (20.0-45.0); MONOCYTES % (AUTO) 1.9 % (1.0-10.0); NEUTROPHILS % (AUTO) 86.7 % (45.0-75.0)
[2020-02-22 21:28] LABS: ANION GAP 20 mmol/L (5-15); BLOOD UREA NITROGEN 5 mg/dL (7-18); CALCIUM 9.9 MG/DL (8.5-10.1); CARBON DIOXIDE 18 MMOL/L (21-32); CHLORIDE 101 MMOL/L (98-107); CREATININE 0.7 MG/DL (0.55-1.30); POTASSIUM 3.5 MMOL/L (3.5-5.1); SODIUM 139 MMOL/L (136-145)
[2020-02-22 21:33] LABS: ALANINE AMINOTRANSFERASE 43 U/L (12-78); ALBUMIN 4.1 G/DL (3.4-5.0); ALBUMIN/GLOBULIN RATIO 0.9 (1.0-2.7); ALKALINE PHOSPHATASE 57 U/L (46-116); ASPARTATE AMINO TRANSFERASE 25 U/L (15-37); BILIRUBIN,TOTAL 0.1 MG/DL (0.2-1.0)
[2020-02-22 22:52] LABS: APPEARANCE,URINE CLEAR; COLOR,URINE YELLOW
[2020-02-22 22:57] LABS: BILIRUBIN, URINE NEGATIVE (NEGATIVE); GLUCOSE, URINE (UA) 1+ (NEGATIVE); KETONES,URINE 4+ (NEGATIVE); LEUKOCYTE ESTERASE ,URINE NEGATIVE (NEGATIVE); NITRITE,URINE NEGATIVE (NEGATIVE); PROTEIN,URINE 1+ (NEGATIVE); UROBILINOGEN,URINE NORMAL MG/DL (0.0-1.0)
--- NOTE | 2020-02-22 23:07 | Diagnostic Imaging Report ---
Indication: Abdominal and pelvic pain during Technique: Transabdominal and endovaginal pelvic ultrasound performed of the gravid uterus. Comparison: None during this Findings: Partially imaged urinary bladder grossly unremarkable allowing for degree of underdistention. There is no intrauterine gestational sac. A pole is identified with crown-rump length corresponding with approximate gestational age by ultrasound of 7 weeks 5 days. Cardiac activity is demonstrated on cine clips. Observed heart rate 188 bpm. A small fibroid is noted measuring approximately 1.5 cm. A small subchorionic hemorrhage is noted. Ovaries appear symmetric in size. Color flow suggested in the bilateral ovaries however note that Doppler tracings were not obtained. IMPRESSION: Single living intrauterine with gestational age by ultrasound of approximately 7 weeks, 5 days. The heart rate 188 bpm. Small subchorionic hemorrhage identified. Obstetric follow-up with short-term interval follow-up ultrasound recommended. Ovarian size symmetric. Color flow suggested in the bilateral ovaries however note that Doppler tracings were not obtained. Repeat exam can be obtained for further evaluation if there is concern for compromise ovarian blood flow.
[2020-02-22] MEDS ORDERED: ONDANSETRON ODT4 MG BC (23:13)
[2020-02-22] MEDS ORDERED: PRENATAL 19 CH1 EAC1 PO (23:13)
[2020-02-22 23:53] VITALS: BP 122/68
--- NOTE | 2020-02-23 10:16 | Diagnostic Imaging Report ---
EXAM: US First Trimester , Transabdominal and Transvaginal CLINICAL HISTORY: ABD PAIN TECHNIQUE: Real-time transabdominal and transvaginal obstetrical ultrasound of the maternal pelvis and a first trimester with image documentation. Transvaginal imaging was used for better evaluation of the fetus and adnexa. COMPARISON: No relevant prior studies available. FINDINGS: Gestation: Intrauterine gestational sac contains a pole with crown-rump length of 1.4 cm, corresponding to gestational age of 7 weeks 5 days. Yolk sac is seen. heart tones measure 188 bpm. Placenta/amniotic fluid: Cannot be adequately evaluated due to the early gestational age. A subchronic hemorrhage is identified. Uterus/cervix: Uterus measures 9.7 x 6.2 x 7.8 cm. And 1.4 cm subserosal fibroid is identified in the lower uterine segment. Ovaries: Right ovary measures 2.4 x 1.3 x 2.2 cm. Left ovary measures 2.2 x 1.7 x 2.4 cm. No mass. Free fluid: . No adnexal mass or pelvic free fluid is seen IMPRESSION: Single live intrauterine gestation with sonographic age of 7 weeks 5 days, estimated delivery date of October 05, 2020. A subchronic hemorrhage is seen.
== END 2020-02-22 23:53 | disposition home or self-care (01) ==
LOC: EMR 22:11
DX: O26.91 Pregnancy related conditions, unspecified, first trimester (principal); O20.8 Other hemorrhage in early pregnancy; R10.9 Unspecified abdominal pain; Z3A.01 Less than 8 weeks gestation of pregnancy
CPT/HCPCS: 36415; 76801; 76817; 80053; 80307; 81003; 83690; 84702; 85025; 86850; 86900; 86901; 96361; 96374; 96375; 96376; J2270; J2405; J7030; Z7502; 99284

== ENCOUNTER 2020-03-07 19:12 | Emergency (ER) | payer MEDICAID ==
[~2020-03-07] VITALS: Ht 160 cm; Wt 72.6 kg
[~2020-03-07 19:12] MED LIST changes: +PRENATAL 19 CH1 EAC1 PO
[2020-03-07 19:30] VITALS: BP 122/79
--- NOTE | 2020-03-07 19:30 | NUR ---
ED Nurse Note: Patient walked in from home d/t abdominal pain and n/v that started approximately 2200 yesterday. Patient aao x 4 and ambulatory. Patient reports at 3 months. Patient reports vomiting episodes x 13 times. Patient had a meal yesterday at approximately 1800. Patient reports pain at 10/10, sharp. Patient has history of gastritis. Patient placed in room, no acute distress noted during assessment.
[2020-03-07] MEDS ORDERED: Metoclopramide 10mg/2ml Inj IVP ONE ×2 (19:45→21:30)
--- NOTE | 2020-03-07 19:53 | Emergency Room Report ---
History of Present Illness General Chief Complaint: Vomiting Source: Patient Present Illness HPI Patient is a 29-year-old female approximately 12 weeks history of cyclical vomiting and gastritis who presents to the ER complaining of abdominal cramping, nausea and vomiting for 2 days. She states that she chronically vomits and chronically has abdominal cramping. She denies any fever or chills. She denies any chest pain or shortness of breath. She denies any dysuria or hematuria. She denies any vaginal bleeding. Allergies: Coded Allergies: [place] (Verified Allergy, Unknown, 10/07/16) COVID-19 Screening Contact w/high risk pt: No Recent Travel to affected area: No Experienced COVID-19 symptoms?: No COVID-19 Testing performed CORK PAINTER AND GRADER: No Patient History Last Menstrual Period: 12/06/19 Now: Yes - patient reports : 3 Para: 2 Reviewed Nursing Documentation: PMH: Agreed; PSxH: Agreed Nursing Documentation-PMH Hx Cardiac Problems: No Hx Cancer: No Hx Gastrointestinal Problems: Yes - gastritis Hx Neurological Problems: No Review of Systems All Other Systems: negative except mentioned in HPI Physical Exam Vital Signs Date Time Temp Pulse Resp B/P (MAP) Pulse Ox O2 Delivery O2 Flow Rate FiO2 03/07/20 19:19 97.7 64 18 126/72 (90) 97 Room Air Sp02 EP Interpretation: reviewed, normal General Appearance: no apparent distress, alert, GCS 15, non-toxic Head: normocephalic, atraumatic Eyes: bilateral eye normal inspection, bilateral eye PERRL ENT: hearing grossly normal, normal pharynx, no angioedema, normal voice Neck: full range of motion, supple/symm/no masses Respiratory: chest non-tender, lungs clear, normal breath sounds, speaking full sentences Cardiovascular #1: regular rate, rhythm, no edema Gastrointestinal: normal bowel sounds, non tender, soft, non-distended, no guarding, no rebound Rectal: deferred Genitourinary: no CVA tenderness Musculoskeletal: back normal, normal range of motion Neurologic: pricing specialist III-XII nml as tested, oriented x3 Psychiatric: no suicidal/homicidal ideation Skin: no rash Lymphatic: no adenopathy Medical Decision Making Diagnostic Impression: Primary Impression: Cyclic vomiting syndrome Additional Impressions: Nausea & vomiting Gastritis ER Course Patient given IV Pepcid as well as multiple doses of Reglan and intramuscular Phenergan. On reevaluation patient feels improved. Her abdominal discomfort has resolved and she is no longer vomiting. She is tolerating p.o. Ultrasound demonstrates intrauterine . Patient discharged home with prescription for Phenergan as well as Pepcid. After discussing risks and benefits of further diagnostics, treatment plans, as well as indications for and risks of admission, the patient is agreeable to being discharged home. I have explained that their evaluation and treatment in the emergency department today is an important step towards them achieving better health but that their evaluation today is not intended to replace further evaluation and treatment by a physician in their local clinic. I have explained that while the current findings suggest no immediate life threatening emergency they will require further evaluation and treatment by a physician of their choice in their area. They understand that it will be necessary for them to review the final reports of their ED visit with their clinic physician. We have reviewed indications for return to the Emergency Department. I have explained that additional time may need to pass and/or additional testing as an outpatient may be necessary before a definitive diagnosis can be made. They tell me they are willing to follow up as instructed within the timeframe I recommend. They appear to understand what we discussed. Additionally they understand that if they are unable to be seen by an outpatient physician they are welcome, and in fact should, return to the Emergency Department for a repeat evaluation. The patient is stable at time of discharge. Last Vital Signs Date Time Temp Pulse Resp B/P (MAP) Pulse Ox O2 Delivery O2 Flow Rate FiO2 03/07/20 19:19 97.7 64 18 126/72 (90) 97 Room Air Disposition: HOME, SELF-CARE Condition: Stable Scripts Promethazine Hcl* (PHENERGAN*) 25 Mg Tablet 25 MG ORAL Q6H, #15 TAB 0 Refills Prov: Mei Godwin M.D. 03/07/20 Nitrofurantoin Monohyd/M-Cryst* (MACROBID 100 MG*) 100 Mg Capsule 100 MG ORAL EVERY 12 HOURS for 7 Days, CAP Prov: Mei Godwin M.D. 03/07/20 Additional Instructions: The patient was provided with discharge instructions, notified to follow-up with a primary care doctor and or specialist in the next 24-48 hours, and to return to the ED if they have worsening of their symptoms. Please note that this report is being documented using [employer] technology. This can lead to erroneous entry secondary to incorrect interpretation by the dictating instrument. Mei Godwin M.D. Mar 07, 2020 19:53
[2020-03-07 20:12] LABS: HEMATOCRIT 36.3 % (37.0-47.0); HEMOGLOBIN 11.7 G/DL (12.0-16.0); MEAN CORPUSCULAR VOLUME 85 FL (80-99); PLATELET COUNT 410 K/UL (150-450); RED BLOOD COUNT 4.26 M/UL (4.20-5.40); RED CELL DISTRIBUTION WIDTH 15.8 % (11.6-14.8); WHITE BLOOD COUNT 10.4 K/UL (4.8-10.8)
[2020-03-07 20:30] LABS: APPEARANCE,URINE SLIGHTLY CLOUDY; BILIRUBIN, URINE NEGATIVE (NEGATIVE); GLUCOSE, URINE (UA) NEGATIVE (NEGATIVE); KETONES,URINE 4+ (NEGATIVE); LEUKOCYTE ESTERASE ,URINE 1+ (NEGATIVE); NITRITE,URINE NEGATIVE (NEGATIVE); PH,URINE 5 (4.5-8.0); PROTEIN,URINE 2+ (NEGATIVE); UROBILINOGEN,URINE NORMAL MG/DL (0.0-1.0)
[2020-03-07 20:38] LABS: ANION GAP 17 mmol/L (5-15); BLOOD UREA NITROGEN 6 mg/dL (7-18); CALCIUM 9.3 MG/DL (8.5-10.1); CARBON DIOXIDE 20 MMOL/L (21-32); CHLORIDE 101 MMOL/L (98-107); CREATININE 0.7 MG/DL (0.55-1.30); POTASSIUM 3.9 MMOL/L (3.5-5.1); SODIUM 137 MMOL/L (136-145)
[2020-03-07 20:42] LABS: ALANINE AMINOTRANSFERASE 38 U/L (12-78); ALBUMIN/GLOBULIN RATIO 0.8 (1.0-2.7); ALKALINE PHOSPHATASE 54 U/L (46-116); ASPARTATE AMINO TRANSFERASE 21 U/L (15-37); BILIRUBIN,TOTAL 0.2 MG/DL (0.2-1.0)
[2020-03-07 20:48] LABS: COLOR,URINE YELLOW
--- NOTE | 2020-03-07 21:35 | NUR ---
ED Nurse Note: Ultrasound at bedside
--- NOTE | 2020-03-07 21:57 | NUR ---
ED Nurse Note: Informed ERMD pt unable to take PO meds d/t n/v.
[2020-03-07] MEDS ORDERED: PHENERGAN25 M1 ORAL (22:14)
[2020-03-07] MEDS ORDERED: NITROFURANTOIN100 M2 ORAL (22:14)
--- NOTE | 2020-03-07 22:16 | NUR ---
ED Nurse Note: PO Macrobid held until patient able to tolerate PO meds, ok per ERMD, administered when pt is able to tolerate.
[2020-03-07 23:08] VITALS: BP 115/75
--- NOTE | 2020-03-07 23:08 | NUR ---
ER DISCHARGE NOTE: Patient is cleared to be discharged per ERMD, pt is aox4, on room air, with stable vital signs. pt was given dc and prescription instructions, pt was able to verbalize understanding, pt id band and iv site removed intact without complications. pt is able to ambulate with steady gait. pt took all belongings. pt stable upon discharge accompanied by aunt.
--- NOTE | 2020-03-07 23:50 | Diagnostic Imaging Report ---
EXAM: US First Trimester , Transabdominal CLINICAL HISTORY: PAIN TECHNIQUE: Real-time transabdominal obstetrical ultrasound of the maternal pelvis and a first trimester with image documentation. COMPARISON: No relevant prior studies available. FINDINGS: Gestation: IUP measuring 11 weeks 2 days with heart rate of 169 bpm. Placenta/amniotic fluid: Cannot be adequately evaluated due to the early gestational age. Uterus/cervix: Complex, fibroid uterus Ovaries: Unremarkable. IMPRESSION: IUP measuring 11 weeks 2 days with heart rate of 169 bpm.
--- NOTE | 2020-03-07 23:51 | Diagnostic Imaging Report ---
EXAM: US , Transvaginal CLINICAL HISTORY: PAIN TECHNIQUE: Real-time transvaginal obstetrical ultrasound of the maternal pelvis and a first trimester with image documentation. Transvaginal imaging was used for better evaluation of the fetus and adnexa. COMPARISON: No relevant prior studies available. FINDINGS: Gestation: IUP measuring 11 weeks 2 days with heart rate of 169 bpm. Placenta/amniotic fluid: Cannot be adequately evaluated due to the early gestational age. Uterus/cervix: Complex, fibroid uterus Ovaries: Unremarkable. IMPRESSION: IUP measuring 11 weeks 2 days with heart rate of 169 bpm.
== END 2020-03-07 23:08 | disposition home or self-care (01) ==
LOC: EMR 19:55
DX: O21.9 Vomiting of pregnancy, unspecified (principal); Z3A.11 11 weeks gestation of pregnancy; O34.11 Maternal care for benign tumor of corpus uteri, first trimester; D25.9 Leiomyoma of uterus, unspecified
CPT/HCPCS: 36415; 76801; 76817; 80053; 80307; 81003; 81025; 83690; 83735; 84702; 85007; 85025; 87086; 96361; 96372; 96374; 96375; 96376; J2550; J2765; J7030; S0028; Z7502; 99284

== ENCOUNTER 2020-03-30 18:16 | Emergency (ER) | payer MEDICAID ==
[~2020-03-30] VITALS: Ht 160 cm; Wt 74.8 kg
[~2020-03-30 18:16] MED LIST changes: +PHENERGAN25 M1 ORAL
[2020-03-30 18:23] VITALS: BP 126/72
[2020-03-30] MEDS ORDERED: Metoclopramide 10mg/2ml Inj IVP ONE (18:45)
[2020-03-30 18:55] LABS: APPEARANCE,URINE SLIGHTLY CLOUDY; BILIRUBIN, URINE NEGATIVE (NEGATIVE); GLUCOSE, URINE (UA) NEGATIVE (NEGATIVE); KETONES,URINE 4+ (NEGATIVE); LEUKOCYTE ESTERASE ,URINE 3+ (NEGATIVE); NITRITE,URINE NEGATIVE (NEGATIVE); PH,URINE 6 (4.5-8.0); PROTEIN,URINE 2+ (NEGATIVE); UROBILINOGEN,URINE 1 MG/DL (0.0-1.0)
--- NOTE | 2020-03-30 18:55 | Emergency Room Report ---
History of Present Illness General Chief Complaint: Female Urogenital Problems Source: Patient Present Illness HPI 29 YO Female who is at approx 14 wks presents to the ED c/o acute onset of lower back pain and lower abdominal pain that is cramping in nature and 10/10 in severity x 2 days. PT. also reports several episodes of vomiting without blood. Patient reports she noted some blood in her urine. She denies dysuria, urinary frequency or urgency. She states she just had an appointment with her MANAGER OF FINANCE 2 weeks ago and everything was normal. She has had IUP established. She denies vaginal bleeding. She reports that she has been taking medications that were provided to her by her MANAGER OF FINANCE for nausea/vomiting however she is not having any relief. She denies fevers or chills. She denies constipation or diarrhea. She denies trauma or fall. Pt. reports history of chronic gastritis and vomiting. Allergies: Coded Allergies: [place] (Verified Allergy, Unknown, 10/07/16) COVID-19 Screening Contact w/high risk pt: No Recent Travel to affected area: No Experienced COVID-19 symptoms?: No COVID-19 Testing performed PHOTOGRAPHY PROFESSOR: No Patient History Past Medical History: see triage record Past Surgical History: none Pertinent Family History: none Now: Yes Reviewed Nursing Documentation: PMH: Agreed; PSxH: Agreed Nursing Documentation-PMH Past Medical History: No History, Except For Hx Cardiac Problems: No Hx Cancer: No Hx Gastrointestinal Problems: Yes - gastritis Hx Neurological Problems: No Review of Systems All Other Systems: negative except mentioned in HPI Physical Exam Vital Signs Date Time Temp Pulse Resp B/P (MAP) Pulse Ox O2 Delivery O2 Flow Rate FiO2 03/30/20 18:19 98.1 66 20 126/72 (90) 96 Room Air Sp02 EP Interpretation: reviewed, normal General Appearance: no apparent distress, alert, GCS 15, non-toxic Head: normocephalic, atraumatic Eyes: bilateral eye normal inspection, bilateral eye PERRL ENT: hearing grossly normal, normal voice Neck: full range of motion Respiratory: chest non-tender, lungs clear, normal breath sounds, speaking full sentences Cardiovascular #1: regular rate, rhythm, no edema Gastrointestinal: normal bowel sounds, soft, tenderness - midline lower abdominal tenderness. , other - gravid abdomen. Rectal: deferred Genitourinary: normal inspection, no CVA tenderness Musculoskeletal: back normal, normal range of motion, gait/station normal, non- tender Neurologic: alert, motor strength/tone normal, oriented x3, sensory intact, responsive, speech normal Psychiatric: judgement/insight normal Lymphatic: no adenopathy Medical Decision Making PA Attestation Dr. Trujillo is my supervising Physician whom patient management has been discussed with. Diagnostic Impression: Primary Impression: UTI (urinary tract infection) Qualified Codes: N30.01 - Acute cystitis with hematuria ER Course 29 YO Female who is at approx 14 wks presents to the ED c/o acute onset of lower back pain and lower abdominal pain that is cramping in nature and 10/10 in severity x 2 days. PT. also reports several episodes of vomiting without blood. Patient reports she noted some blood in her urine. She denies dysuria, urinary frequency or urgency. She states she just had an appointment with her MANAGER OF FINANCE 2 weeks ago and everything was normal. She has had IUP established. She denies vaginal bleeding. She reports that she has been taking medications that were provided to her by her MANAGER OF FINANCE for nausea/vomiting however she is not having any relief. She denies fevers or chills. She denies constipation or diarrhea. She denies trauma or fall. Pt. reports history of chronic gastritis and vomiting. Ddx considered but are not limited to: , ectopic ,Spontaneous , Ovarian torsion, Ovarian cyst. PID, acute appendicitis, gall stones. Vital signs: are WNL, pt. is afebrile H&PE are most consistent with: Possible UTI during . Will Do US to r/o intrauterine complications or other etiologies. PT. non-toxic in appearance. She appears to be in pain. ORDERS: -CBC: WNL -CMP: WNL -Lipase: WNL -Pelvic US complete- normal intrauterine estimated at 14 weeks gestation. FHR 161 ED INTERVENTIONS: None at this time. - 10 mg Reglan IV - 20mg Pepcid IV -Fentanyl 50mcg - Rocephin 1g IV -I do not identify an emergent condition at this time. With current present ation, pt. is stable for close outpatient follow up and conservative treatment. D/w pt. to return promptly to ED with worsening or new symptoms.- Pt. verbalizes' understanding and agreement with proposed treatment plan. DISCHARGE: At this time pt. is stable for d/c to home. Will provide printed patient care instructions, and any necessary prescriptions. Care plan and follow up instructions have been discussed with the patient prior to discharge. Labs Test 03/30/20 18:40 White Blood Count 9.1 K/UL (4.8-10.8) Red Blood Count 4.21 M/UL (4.20-5.40) Hemoglobin 11.5 G/DL (12.0-16.0) Hematocrit 35.6 % (37.0-47.0) Mean Corpuscular Volume 85 FL (80-99) Mean Corpuscular Hemoglobin 27.3 PG (27.0-31.0) Mean Corpuscular Hemoglobin Concent 32.3 G/DL (32.0-36.0) Red Cell Distribution Width 15.5 % (11.6-14.8) Platelet Count 458 K/UL (150-450) Mean Platelet Volume 6.0 FL (6.5-10.1) Neutrophils (%) (Auto) 68.0 % (45.0-75.0) Lymphocytes (%) (Auto) 23.5 % (20.0-45.0) Monocytes (%) (Auto) 6.3 % (1.0-10.0) Eosinophils (%) (Auto) 0.9 % (0.0-3.0) Basophils (%) (Auto) 1.4 % (0.0-2.0) Urine Color Yellow Urine Appearance Slightly cloudy Urine pH 6 (4.5-8.0) Urine Specific [place] 1.020 (1.005-1.035) Urine Protein 2+ (NEGATIVE) Urine Glucose (UA) Negative (NEGATIVE) Urine Ketones 4+ (NEGATIVE) Urine Blood 1+ (NEGATIVE) Urine Nitrite Negative (NEGATIVE) Urine Bilirubin Negative (NEGATIVE) Urine Urobilinogen 1 MG/DL (0.0-1.0) Urine Leukocyte Esterase 3+ (NEGATIVE) Urine RBC 2-4 /HPF (0 - 2) Urine WBC 10-15 /HPF (0 - 2) Urine Squamous Epithelial Cells Few /LPF (NONE/OCC) Urine Bacteria Moderate /HPF (NONE) Sodium Level 136 MMOL/L (136-145) Potassium Level 3.0 MMOL/L (3.5-5.1) Chloride Level 99 MMOL/L (98-107) Carbon Dioxide Level 22 MMOL/L (21-32) Anion Gap 15 mmol/L (5-15) Blood Urea Nitrogen 6 mg/dL (7-18) Creatinine 0.6 MG/DL (0.55-1.30) Estimat Glomerular Filtration Rate > 60 mL/min (>60) Glucose Level 97 MG/DL (74-106) Calcium Level 9.4 MG/DL (8.5-10.1) Total Bilirubin 0.4 MG/DL (0.2-1.0) Aspartate Amino Transf (AST/SGOT) 36 U/L (15-37) Alanine Aminotransferase (ALT/SGPT) 66 U/L (12-78) Alkaline Phosphatase 69 U/L (46-116) Total Protein 8.2 G/DL (6.4-8.2) Albumin 3.7 G/DL (3.4-5.0) Globulin 4.5 g/dL Albumin/Globulin Ratio 0.8 (1.0-2.7) Lipase 129 U/L (73-393) CT/MRI/US Diagnostic Results CT/MRI/US Diagnostic Results : Impression "IMPRESSION: 1. Single viable intrauterine gestation corresponds to a gestational age of 14 weeks 3 days. 2. heart rate is 161 bpm. 3. Fetuses inside presentation. 4. Cervix is closed. 5. No free fluid. 6. No adnexal abnormalities.". --Per official radiology report- Please see report for specific details. Last Vital Signs Date Time Temp Pulse Resp B/P (MAP) Pulse Ox O2 Delivery O2 Flow Rate FiO2 03/30/20 18:19 98.1 66 20 126/72 (90) 96 Room Air Status: improved Disposition: HOME, SELF-CARE Condition: Stable Scripts Promethazine Hcl* (PHENERGAN*) 25 Mg Tablet 25 MG ORAL Q6H for Vomiting, #15 TAB 0 Refills Prov: Cristiana Silva 03/30/20 Cephalexin* (KEFLEX*) 500 Mg Capsule 500 MG ORAL EVERY 12 HOURS for 10 Days, #20 CAP 0 Refills Prov: Cristiana Silva 03/30/20 Famotidine* (Pepcid 20mg tablet*) 20 Mg Tablet 20 MG ORAL TWICE A DAY for Gerd for 7 Days, #14 TAB 0 Refills Prov: Cristiana Silva 03/30/20 Patient Instructions: and Urinary Tract Infection Additional Instructions: Take medications as directed. Follow up with a OBGYN within 3 days, even if your symptoms have resolved. Return sooner to ED if new symptoms occur, or current symptoms become worse. - Please note that this Emergency Department Report was dictated using [employer] general technology software, occasionally this can lead to erroneous entry secondary to interpretation by the dictation equipment. Cristiana Silva Mar 30, 2020 18:55
[2020-03-30 18:57] LABS: BASOPHILS % (AUTO) 1.4 % (0.0-2.0); EOSINOPHILS % (AUTO) 0.9 % (0.0-3.0); HEMATOCRIT 35.6 % (37.0-47.0); HEMOGLOBIN 11.5 G/DL (12.0-16.0); LYMPHOCYTES % (AUTO) 23.5 % (20.0-45.0); MEAN CORPUSCULAR VOLUME 85 FL (80-99); MONOCYTES % (AUTO) 6.3 % (1.0-10.0); PLATELET COUNT 458 K/UL (150-450); RED BLOOD COUNT 4.21 M/UL (4.20-5.40); RED CELL DISTRIBUTION WIDTH 15.5 % (11.6-14.8); WHITE BLOOD COUNT 9.1 K/UL (4.8-10.8)
[2020-03-30 18:59] LABS: COLOR,URINE YELLOW
[2020-03-30 19:04] LABS: ANION GAP 15 mmol/L (5-15); BLOOD UREA NITROGEN 6 mg/dL (7-18); CALCIUM 9.4 MG/DL (8.5-10.1); CARBON DIOXIDE 22 MMOL/L (21-32); CHLORIDE 99 MMOL/L (98-107); CREATININE 0.6 MG/DL (0.55-1.30); SODIUM 136 MMOL/L (136-145)
[2020-03-30 19:09] LABS: ALANINE AMINOTRANSFERASE 66 U/L (12-78); ALBUMIN 3.7 G/DL (3.4-5.0); ALBUMIN/GLOBULIN RATIO 0.8 (1.0-2.7); ALKALINE PHOSPHATASE 69 U/L (46-116); ASPARTATE AMINO TRANSFERASE 36 U/L (15-37); BILIRUBIN,TOTAL 0.4 MG/DL (0.2-1.0)
--- NOTE | 2020-03-30 19:26 | Diagnostic Imaging Report ---
EXAM: US First Trimester , Transabdominal and Transvaginal CLINICAL HISTORY: ABD PAIN TECHNIQUE: Real-time transabdominal and transvaginal obstetrical ultrasound of the maternal pelvis and a first trimester with image documentation. Transvaginal imaging was used for better evaluation of the fetus and adnexa. COMPARISON: 03/07/2020. FINDINGS: Gestation: Single viable intrauterine gestation is noted. Gestational age is 14 weeks 3 days. heart rate is 161 bpm. Fetuses inside presentation appeared Placenta/amniotic fluid: Cannot be adequately evaluated due to the early gestational age. Uterus/cervix: Cervix measures 4.7 cm and is closed. No myometrial mass. Ovaries: No adnexal abnormalities. No mass. Free fluid: No free fluid. IMPRESSION: 1. Single viable intrauterine gestation corresponds to a gestational age of 14 weeks 3 days. 2. heart rate is 161 bpm. 3. Fetuses inside presentation. 4. Cervix is closed. 5. No free fluid. 6. No adnexal abnormalities.
[2020-03-30] MEDS ORDERED: fentaNYL 100 mcg/2 mL IV ONE (19:30)
[2020-03-30] MEDS ORDERED: cefTRIAXone 1 GM in NS 55 ML IVPB ONE (19:30)
[2020-03-30] MEDS ORDERED: PHENERGAN25 M1 ORAL (19:48)
[2020-03-30] MEDS ORDERED: CEPHALEXIN500 MG ORAL (19:48)
[2020-03-30] MEDS ORDERED: FAMOTIDINE20 MG ORAL (19:48)
[2020-03-30 20:13] VITALS: BP 118/69
== END 2020-03-30 20:13 | disposition home or self-care (01) ==
LOC: EMR 18:50
DX: O23.42 Unspecified infection of urinary tract in pregnancy, second trimester (principal); Z3A.14 14 weeks gestation of pregnancy; M54.5 Low back pain
CPT/HCPCS: 36415; 76805; 76817; 80053; 81003; 83690; 85025; 87086; 87181; 96365; 96375; J0696; J2765; J3010; S0028; Z7502; 99284

== ENCOUNTER 2020-05-31 10:17 | Emergency (ER) | payer MEDICAID ==
[~2020-05-31] VITALS: Ht 160 cm; Wt 77.1 kg
--- NOTE | 2020-05-31 10:20 | NUR ---
Patient walked in to ED c/o lower back S/P trip and fall x2 days. Pt was asking for a work note. Pt is 23 weeks . checkup is up to date. pt is a/ox4, complaints of lower back pain 10/07. vss at this time.
[2020-05-31 10:27] VITALS: BP 106/68
[2020-05-31 10:35] VITALS: BP 126/75
--- NOTE | 2020-05-31 10:37 | NUR ---
ED Nurse Note: Pt cleared by health care Provider for discharge. DC instructions/prescription was given and explained to pt and verbalized understanding of teachings. All medical deviecs such as ID band removed. Pt is AAO x4, ambulatory and left with all personal belongings.patient discharged home. vss. nad noted. all belongings with patient.
--- NOTE | 2020-05-31 10:41 | Emergency Room Report ---
History of Present Illness General Chief Complaint: Multiple Trauma/Fall Source: Patient Present Illness HPI Patient is a 30-year-old female currently 23 weeks who presents to the ER complaining of lower back pain status post trip and fall. Patient states that she tripped over her child's toy 2 days ago and landed onto her buttock. She denies any head trauma. She denies any loss of consciousness. She denies any ill in inability to walk. She states that since then she is had lower back pain. She is been taking Tylenol for pain relief. Patient denies any abdominal pain, leakage from her vagina or vaginal bleeding. She states that she feels the baby moving normally. Patient states that she is here for a work note so she can go back to work. Allergies: Coded Allergies: Delmita (Verified Allergy, Unknown, 10/07/16) COVID-19 Screening Contact w/high risk pt: No Recent Travel to affected area: No Experienced COVID-19 symptoms?: No COVID-19 Testing performed [employer]: Yes - 05/29/20 COVID-19 Screening: Negative COVID-19 COVID-19 Testing Source: at her job Patient History Last Menstrual Period: 12/06/19 Now: No : 4 Para: 2 Reviewed Nursing Documentation: PMH: Agreed; PSxH: Agreed Nursing Documentation-PMH Hx Cardiac Problems: No - anemia Hx Cancer: No Hx Gastrointestinal Problems: Yes - gastritis Hx Neurological Problems: No Review of Systems All Other Systems: negative except mentioned in HPI Physical Exam Vital Signs Date Time Temp Pulse Resp B/P (MAP) Pulse Ox O2 Delivery O2 Flow Rate FiO2 05/31/20 10:18 97.9 82 19 106/68 (81) 98 Room Air Sp02 EP Interpretation: reviewed, normal General Appearance: no apparent distress, alert, GCS 15, non-toxic Head: normocephalic, atraumatic Eyes: bilateral eye normal inspection, bilateral eye PERRL ENT: hearing grossly normal, normal pharynx, no angioedema, normal voice Neck: full range of motion, supple/symm/no masses Respiratory: chest non-tender, lungs clear, normal breath sounds, speaking full sentences Cardiovascular #1: regular rate, rhythm, no edema Gastrointestinal: normal bowel sounds, non tender, soft, no guarding, no rebound, other - Gravid uterus Rectal: deferred, other - No saddle anesthesia Musculoskeletal: other - Lower lumbar tenderness to palpation with no step-offs normal range of motion Neurologic: motor strength/tone normal, caramel cutter machine III-XII nml as tested, distal neuro normal, sensory intact, normal gait Psychiatric: no suicidal/homicidal ideation Skin: no rash Lymphatic: no adenopathy Medical Decision Making Diagnostic Impression: Primary Impression: Back pain Additional Impression: Fall ER Course After discussing risks and benefits of further diagnostics, treatment plans, as well as indications for and risks of admission, the patient is agreeable to being discharged home. I have explained that their evaluation and treatment in the emergency department today is an important step towards them achieving better health but that their evaluation today is not intended to replace further evaluation and treatment by a physician in their local clinic. I have explained that while the current findings suggest no immediate life threatening emergency they will require further evaluation and treatment by a physician of their choice in their area. They understand that it will be necessary for them to review the final reports of their ED visit with their clinic physician. We have reviewed indications for return to the Emergency Department. I have explained that additional time may need to pass and/or additional testing as an outpatient may be necessary before a definitive diagnosis can be made. They tell me they are willing to follow up as instructed within the timeframe I recommend. They appear to understand what we discussed. Additionally they understand that if they are unable to be seen by an outpatient physician they are welcome, and in fact should, return to the Emergency Department for a repeat evaluation. The patient is stable at time of discharge. Last Vital Signs Date Time Temp Pulse Resp B/P (MAP) Pulse Ox O2 Delivery O2 Flow Rate FiO2 05/31/20 10:35 98.4 74 18 126/75 99 Room Air Disposition: HOME, SELF-CARE Condition: Stable Referrals: [facility],REFERRING (PCP) [facility] Corrie Reyna [facility], [facility] Departure Forms: Return to Work Return to Work Date: May 31, 2020 Patient Instructions: Fall Prevention in the Home, [id number], Lumbosacral S train Additional Instructions: The patient was provided with discharge instructions, notified to follow-up with a primary care doctor and or specialist in the next 24-48 hours, and to return to the ED if they have worsening of their symptoms. Please note that this report is being documented using [employer] technology. This can lead to erroneous entry secondary to incorrect interpretation by the dictating instrument. Mei Godwin M.D. May 31, 2020 10:41
== END 2020-05-31 10:40 | disposition home or self-care (01) ==
LOC: EMR 10:35
DX: O26.892 Other specified pregnancy related conditions, second trimester (principal); Z3A.23 23 weeks gestation of pregnancy; M54.5 Low back pain; W01.0XXA Fall on same level from slipping, tripping and stumbling without subsequent striking against object, initial encounter; Y93.01 Activity, walking, marching and hiking; Y92.019 Unspecified place in single-family (private) house as the place of occurrence of the external cause; Z91.018 Allergy to other foods
CPT/HCPCS: 99281